=== PATIENT | female | born 1975 | race American Indian/Alaskan Native ===

== ENCOUNTER 2016-08-05 17:55 | Emergency (ER) | payer MEDICARE ==
[2016-08-05 17:55] VITALS: BMI 25.5
[2016-08-05 18:30] VITALS: RESP 18; TEMP 98.7
[2016-08-05 20:32] LABS: RBC URINE 3 /hpf (0-3); URINE BACTERIA RARE (<OCC); URINE BILIRUBIN NEGATIVE (NEGATIVE); URINE BLOOD NEGATIVE (NEGATIVE); URINE COLOR Straw (YELLOW); URINE GLUCOSE (UA) 3+ mg/dL (Normal); URINE KETONE NEGATIVE (NEGATIVE); URINE LEUKOCYTE ESTERASE NEG Leu/uL (Negative); URINE PROTEIN 2+ mg/dL (NEGATIVE); URINE UROBILINOGEN NORMAL mg/dL (0.2-1.0); WBC URINE 3 /hpf (0-5)
[2016-08-05 20:32] LABS: BASO # 0.1 K/uL (0.0-0.2); BASO % 0.5 % (0.0-2.0); EOS # 0.3 K/uL (0.0-0.7); EOS % 1.7 % (0.0-4.0); HEMATOCRIT 33.1 % (34.0-47.0); LYMPH # 4.5 K/uL (1.0-4.3); LYMPH % 28.6 % (20.0-40.0); MEAN CELL VOLUME 92.9 fL (81.0-99.0); MEAN CORPUSCULAR HEMOGLOBIN 31.3 pg (27.0-31.0); MEAN CORPUSCULAR HGB CONC 33.7 g/dL (33.0-37.0); MEAN PLATELET VOLUME 8.2 fL (7.2-11.7); MONO # 1.1 K/uL (0.0-0.8); MONO % 6.9 % (0.0-10.0); RED CELL DISTRIBUTION WIDTH 12.7 % (11.5-14.5); WHITE BLOOD COUNT 15.9 K/uL (4.8-10.8)
[2016-08-05 20:39] LABS: CHLORIDE 95 mmol/L (98-107); SODIUM 132 mmol/L (132-148)
[2016-08-05 20:40] LABS: POTASSIUM 4.1 mmol/L (3.6-5.2)
[2016-08-05 20:42] LABS: ALB/GLOB RATIO 1.1 (1.0-2.1); ALKALINE PHOSPHATASE 92 U/L (38-126); ALT/SGPT 16 U/L (9-52); AST/SGOT 31 U/L (14-36); BILIRUBIN,TOTAL 0.6 mg/dL (0.2-1.3); BLOOD UREA NITROGEN 14 mg/dL (7-17); CARBON DIOXIDE 25 mmol/L (22-30); GFR AFRICAN-AMERICAN > 60; TOTAL PROTEIN 7.6 g/dL (6.3-8.3)
[2016-08-05 20:43] LABS: CALCIUM 8.9 mg/dl (8.6-10.4); GLUCOSE,RANDOM 316 mg/dL (65-105)
[2016-08-05] MEDS ORDERED: Sodium Chloride 0.9% 1,000 ML IV ONE (20:51)
[2016-08-05] MEDS ORDERED: (Novolin R) Insulin Human Regular 100 units/ml vial IV STA (20:52)
--- NOTE | 2016-08-05 20:53 | C.PDOC ---
History Of Present Illness 40 year old patient, with a past medical history of hypertension, arthritis, hypercholesterolemia, hypothyroidism, migraine, diabetes, and gastritis, presents to the ED complaining of lower abdominal bloating and tenderness for the past 2 weeks. Patient denies taking any medications for her symptoms. She is unsure if she is at this time. Patient denies fever, chills, nausea , vomiting, diarrhea, vaginal bleeding, vaginal discharge, urinary symptoms, or back pain. Januvia 100 mg daily Glipizide 10 mg 2-5x/day No metformin No insulin (ran out) doesn't finger stick for lack of lancets, but has FS monitor and FS strips. Lost to f/u with Dr. Garcia for her DM Time Seen by Provider: 08/05/16 20:45 Chief Complaint (Nursing): Abdominal Pain History Per: Patient History/Exam Limitations: no limitations Onset/Duration Of Symptoms: Other (2 weeks) Current Symptoms Are (Timing): Still Present Context: Other Severity: Mild Pain Scale Rating Of: 3 Location Of Pain/Discomfort: Other (lower) Radiation Of Pain To:: None Quality Of Discomfort: "Pain", Other (bloating) Exacerbating Factors: None Alleviating Factors: None Last Bowel Movement: Today Recent travel outside of the [place]: No Abnormal Vaginal Bleeding: No Past Medical History Reviewed: Historical Data, Nursing Documentation, Vital Signs Vital Signs: Last Vital Signs Temp 98.7 F 08/05/16 22:55 Pulse 85 08/05/16 22:55 Resp 18 08/05/16 22:55 BP 146/93 H 08/05/16 22:55 Pulse Ox 98 08/05/16 22:55 - Medical History PMH: Arthritis, Depression, Diabetes, Gastritis, HTN, Hypercholesterolemia, Hypothyroidism, Migraine - [facility] Procedures EXCISION OF R FOOT SUBCU/FASCIA, OPEN APPROACH (11/01/15) INSERTION OF INFUSION DEV INTO SUP VENA CAVA, PERC APPROACH (11/01/15) RESECTION OF RIGHT TOE PHALANX, OPEN APPROACH (11/01/15) Family History: States: Unknown Family Hx - Social History Hx Tobacco Use: Yes Hx Alcohol Use: No Hx Substance Use: No - Immunization History Hx Tetanus Toxoid Vaccination: No Hx Influenza Vaccination: No Hx Pneumococcal Vaccination: No Review Of Systems Except As Marked, All Systems Reviewed And Found Negative. Constitutional: Negative for: Fever, Chills Gastrointestinal: Positive for: Abdominal Pain. Negative for: Nausea, Vomiting , Diarrhea Genitourinary: Negative for: Dysuria, Frequency, Incontinence, Hematuria, Vaginal Discharge, Vaginal Bleeding Musculoskeletal: Negative for: Back Pain Physical Exam - Physical Exam Appears: Non-toxic, No Acute Distress Skin: Warm, Dry Head: Atraumatic, Normacephalic Eye(s): bilateral: PERRL, EOMI Neck: Normal ROM, Supple Chest: Symmetrical Cardiovascular: Rhythm Regular Respiratory: Normal Breath Sounds, No Rales, No Rhonchi, No Wheezing Gastrointestinal/Abdominal: Soft, Tenderness (vaguely to the lower abdomen), No Guarding, No Rebound, Other (obese) Back: Normal Inspection, No CVA Tenderness Extremity: Normal ROM Neurological/Psych: Oriented x3, Normal Speech, Normal Cognition Gait: Steady ED Course And Treatment - Laboratory Results Result Diagrams: 08/05/16 20:40 08/05/16 20:24 Lab Interpretation: Abnormal (++ glu, UA neg.) Urine POC: Negative O2 Sat by Pulse Oximetry: 99 (RA) Pulse Ox Interpretation: Normal Progress Note: Plan: Abdomen/Pelvis CT, EKG, Labs, Novolin, IV fluids, Toradol Reevaluation Time: 22:51 Reassessment Condition: Improved Medical Decision Making Medical Decision Making: constipation, small ovarian cysts, uncontrolled DM Disposition Doctor Will See Patient In The: Office Counseled Patient/Family Regarding: Studies Performed, Diagnosis - Disposition Referrals: Joe Jovel [Staff Provider] - Disposition: HOME/ ROUTINE Disposition Time: 22:52 Condition: GOOD Additional Instructions: constipation: Take a laxative now (mag citrate) and re-eval after treatment Ovarian cysts: Follow-up in outpatient [facility] for ultrasound exam as needed Diabetes: Continue your meds and diabetic diet Instructions: Ovarian Cyst (ED), Constipation (ED), Diabetes Mellitus Type 2 in Adults (ED) - Clinical Impression Clinical Impression: Abdominal pain - Scribe Statement The provider has reviewed the documentation as recorded by the Scribe Kristi Patel Provider Attestation: All medical record entries made by the Scribe were at my direction and personally dictated by me. I have reviewed the chart and agree that the record accurately reflects my personal performance of the history, physical exam, medical decision making, and the department course for this patient. I have also personally directed, reviewed, and agree with the discharge instructions and disposition.
[2016-08-05] MEDS ORDERED: (Novolin R) Insulin Human Regular 100 units/ml vial ONE (21:03)
[2016-08-05] MEDS ORDERED: Sodium Chloride 0.9% 1,000 ML ONE (21:03)
[2016-08-05] MEDS ORDERED: Iohexol 350mg/ml 100 ML ONE (21:42)
[2016-08-05 22:56] VITALS: BP 146/93; PULSE 85
[2016-08-05 23:08] VITALS: O2SAT 99
--- NOTE | 2016-08-06 10:09 | CT ---
PROCEDURE: CT Abdomen and Pelvis without intravenous contrast HISTORY: Lower abdominal pain. Evaluate for diverticulitis. COMPARISON: None. TECHNIQUE: Axial computed tomographic images were performed through the abdomen and pelvis with intravenous contrast. Subsequently, sagittal and coronal reformatted images. Contrast Dose: 100 cc of Omnipaque 350 intravenous contrast was administered. Radiation dose: Total exam DLP = 453 mGy-cm. This CT exam was performed using one or more of the following dose reduction techniques: Automated exposure control, adjustment of the mA and/or kV according to patient size, and/or use of iterative reconstruction technique. FINDINGS: LOWER THORAX: Unremarkable. LIVER: Unremarkable. No gross lesion or ductal dilatation. GALLBLADDER AND BILE DUCTS: Decompressed gallbladder. PANCREAS: Unremarkable. No gross lesion or ductal dilatation. SPLEEN: Unremarkable. ADRENALS: Unremarkable. No mass. KIDNEYS AND URETERS: 8 millimeter low-attenuation lesion in the midpole of the left kidney best seen on series 601, image 79 demonstrating a Hounsfield unit attenuation of 66, indeterminate. This is too small to adequately characterize on CT. Correlation with ultrasound may be helpful if clinically indicated. VASCULATURE: Unremarkable. No aortic aneurysm. BOWEL: Unremarkable. No obstruction. No gross mural thickening. Mild thickening versus underdistention of the sigmoid colon. APPENDIX: Unremarkable. Normal appendix. PERITONEUM: Unremarkable. No free fluid. No free air. LYMPH NODES: Unremarkable. No enlarged lymph nodes. BLADDER: Unremarkable. REPRODUCTIVE: Small involuting cyst identified within the left ovary which is asymmetrically enlarged in comparison to right. Further evaluation with pelvic ultrasound may be helpful if clinically indicated. BONES: No acute fracture. OTHER FINDINGS: None. IMPRESSION: Small involuting cyst identified within the left ovary which is asymmetrically enlarged in comparison to right. Further evaluation with pelvic ultrasound may be helpful if clinically indicated. 8 millimeter low-attenuation lesion in the midpole of the left kidney best seen on series 601, image 79 demonstrating a Hounsfield unit attenuation of 66, indeterminate. This is too small to adequately characterize on CT. Correlation with ultrasound may be helpful if clinically indicated. Mild thickening versus underdistention of the sigmoid colon. Clinical correlation. These findings were preliminarily reported at 10:42 p.m. on 08/05/[address] Elva Nickerson from [facility].
--- NOTE | 2016-08-06 18:55 | CARD ---
APPROVED REPORT EKG Measurement Heart [id number] AR 162P11 [id number] <Conclusion> Normal sinus rhythm Normal ECG
== END 2016-08-05 23:37 | disposition home or self-care (01) ==
LOC: C.ER 17:55
DX: K59.00 Constipation, unspecified (principal); E11.65 Type 2 diabetes mellitus with hyperglycemia
CPT/HCPCS: 74177; 80053; 81001; 82948; 84703; 85025; 93005; 96374; 99285; J1885; J7040; Q9967

== ENCOUNTER 2016-12-29 14:26 | Emergency (ER) | payer MEDICARE ==
[2016-12-29 14:26] VITALS: BMI 25.5
[2016-12-29 14:43] VITALS: RESP 18
--- NOTE | 2016-12-29 16:00 | C.PDOC ---
History Of Present Illness 41-year-old female, presents to the emergency department with complaints of cough for the past three days. Patient notes associated subjective chills. Denies sore throat, fever or any other complaints at this time. Time Seen by Provider: 12/29/16 14:55 Chief Complaint (Nursing): Cough, Cold, Congestion History Per: Patient History/Exam Limitations: no limitations Past Medical History Reviewed: Historical Data, Nursing Documentation, Vital Signs Vital Signs: Last Vital Signs Temp 97.8 F 12/29/16 16:43 Pulse 88 12/29/16 16:43 Resp 18 12/29/16 16:43 BP 143/86 12/29/16 16:43 Pulse Ox 99 12/29/16 16:43 - Medical History PMH: Arthritis, Depression, Diabetes, Gastritis, HTN, Hypercholesterolemia, Hypothyroidism, Migraine Denies: Chronic Kidney Disease - [facility] Procedures EXCISION OF R FOOT SUBCU/FASCIA, OPEN APPROACH (11/01/15) INSERTION OF INFUSION DEV INTO SUP VENA CAVA, PERC APPROACH (11/01/15) RESECTION OF RIGHT TOE PHALANX, OPEN APPROACH (11/01/15) Family History: States: No Known Family Hx - Social History Hx Tobacco Use: Yes Hx Alcohol Use: No Hx Substance Use: No - Immunization History Hx Tetanus Toxoid Vaccination: No Hx Influenza Vaccination: No Hx Pneumococcal Vaccination: No Review Of Systems Except As Marked, All Systems Reviewed And Found Negative. Constitutional: Positive for: Chills. Negative for: Fever Respiratory: Positive for: Cough. Negative for: Shortness of Breath, Sputum Gastrointestinal: Negative for: Vomiting Musculoskeletal: Negative for: Back Pain Neurological: Negative for: Weakness, Numbness, Headache, Dizziness Physical Exam - Physical Exam Appears: Non-toxic, No Acute Distress Skin: Normal Color, Warm, Dry, No Rash Head: Atraumatic, Normacephalic Eye(s): bilateral: Normal Inspection, PERRL, EOMI Nose: Normal Oral Mucosa: Moist Lips: Normal Appearing Throat: Erythema (mild, pharyngeal.) Neck: Normal ROM Cardiovascular: Rhythm Regular, No Murmur Respiratory: Normal Breath Sounds, No Accessory Muscle Use, No Rales, No Rhonchi , No Wheezing Extremity: Normal ROM ED Course And Treatment O2 Sat by Pulse Oximetry: 100 Medical Decision Making Medical Decision Making: cxr neg strep neg. antibitoics given. advise outpt f/u and return precautions Disposition - Disposition Referrals: [facility] [Outside] [facility] [Outside] [facility] [Outside] Disposition: HOME/ ROUTINE Disposition Time: 04:00 Condition: STABLE Additional Instructions: please folow up with your doctor. return to er with worsening symptoms or concerns. Prescriptions: levoFLOXacin [Levaquin] 750 mg PO DAILY #7 tab Instructions: Acute Bronchitis (ED) Forms: [facility] ([place]uan), Work Excuse - Clinical Impression Clinical Impression: Bronchitis - Scribe Statement The provider has reviewed the documentation as recorded by the Scribe (Agus Quinonez) All medical record entries made by the Scribe were at my direction and personally dictated by me. I have reviewed the chart and agree that the record accurately reflects my personal performance of the history, physical exam, medical decision making, and the department course for this patient. I have also personally directed, reviewed, and agree with the discharge instructions and disposition.
[2016-12-29 16:43] VITALS: BP 143/86; PULSE 88; TEMP 97.8
--- NOTE | 2016-12-29 17:11 | RAD ---
HISTORY: Cough. COMPARISON: 11/06/2015. TECHNIQUE: Chest PA and lateral FINDINGS: LUNGS: Linear atelectasis, scarring left upper lobe PLEURA: . CARDIOVASCULAR: Normal. OSSEOUS STRUCTURES: Row below row scoliosis incompletely visualized. Stable finding VISUALIZED UPPER ABDOMEN: Normal. OTHER FINDINGS: None. IMPRESSION: No active disease. No significant interval change compared to the prior examination(s).
[2016-12-29 20:04] VITALS: O2SAT 100
== END 2016-12-29 17:13 | disposition home or self-care (01) ==
LOC: C.ER 14:26
DX: J40 Bronchitis, not specified as acute or chronic (principal)

== ENCOUNTER 2017-01-10 18:06 | Emergency (ER) | payer MEDICARE ==
[2017-01-10 18:07] VITALS: BMI 25.5
--- NOTE | 2017-01-10 19:42 | C.PDOC ---
History Of Present Illness 41 y/o female presents to the ED for evaluation of a cough that is prouductive of yellow phlegm which began around 2.5 weeks ago. Patient was evaluated in [facility] on 12/29 and followed up with her PMD on 12/30 as advised. Patient states she was prescribed antibiotics and cough syrup (names unknown). Patient also reports fever, chills, generalized body aches, headache. She denies chest pain, nausea, vomiting. Time Seen by Provider: 01/10/17 18:56 Chief Complaint (Nursing): Flu-like Symptoms History Per: Patient History/Exam Limitations: no limitations Onset/Duration Of Symptoms: Other (2.5 weeks ) Current Symptoms Are (Timing): Still Present Associated Symptoms: Cough, Sputum Ear Symptoms: Bilateral: None Additional History Per: Patient Past Medical History Reviewed: Historical Data, Nursing Documentation, Vital Signs Vital Signs: Last Vital Signs Temp 98.9 F 01/10/17 19:52 Pulse 82 01/10/17 19:52 Resp 16 01/10/17 19:52 BP 126/84 01/10/17 19:52 Pulse Ox 98 01/10/17 23:15 - Medical History PMH: Arthritis, Depression, Diabetes, Gastritis, HTN, Hypercholesterolemia, Hypothyroidism, Migraine Surgical History: No Surg Hx - [facility] Procedures EXCISION OF R FOOT SUBCU/FASCIA, OPEN APPROACH (11/01/15) INSERTION OF INFUSION DEV INTO SUP VENA CAVA, PERC APPROACH (11/01/15) RESECTION OF RIGHT TOE PHALANX, OPEN APPROACH (11/01/15) Family History: States: Unknown Family Hx - Social History Hx Tobacco Use: Yes Hx Alcohol Use: No Hx Substance Use: No - Immunization History Hx Tetanus Toxoid Vaccination: No Hx Influenza Vaccination: No Hx Pneumococcal Vaccination: No Review Of Systems Constitutional: Positive for: Fever, Chills Cardiovascular: Negative for: Chest Pain Respiratory: Positive for: Cough, Sputum Gastrointestinal: Negative for: Nausea, Vomiting Musculoskeletal: Positive for: Other (generalized body aches ) Neurological: Positive for: Headache Physical Exam - Physical Exam Appears: Non-toxic, No Acute Distress Skin: Normal Color, Warm, Dry Head: Atraumatic, Normacephalic Eye(s): bilateral: Normal Inspection Oral Mucosa: Moist Neck: Supple Chest: Symmetrical, No Deformity, No Tenderness Cardiovascular: Rhythm Regular, No Murmur Respiratory: Normal Breath Sounds, No Rales, No Rhonchi, No Wheezing Gastrointestinal/Abdominal: Tenderness (left lower quadrant ), No Guarding, No Rebound Back: Normal Inspection Extremity: Normal ROM, Capillary Refill (less than 2 seconds ) Gait: Steady ED Course And Treatment ECG: Interpreted By Me, Viewed By Me ECG Rhythm: Sinus Rhythm Rate From EC O2 Sat by Pulse Oximetry: 98 (on RA) Pulse Ox Interpretation: Normal Medical Decision Making Medical Decision Making: resolving bronchitis, clear lungs, normal VS, TWO rounds of abx, ? underlying Psych issues ok to f/u w PMD Disposition Doctor Will See Patient In The: Office Counseled Patient/Family Regarding: Studies Performed, Diagnosis - Disposition Referrals: Ralf Garcia MD [Staff Provider] - Disposition: HOME/ ROUTINE Disposition Time: 19:42 Condition: GOOD Additional Instructions: continue your regular cough medicines No more antibiotics Follow-up with Dr. Garcia as needed. Instructions: Guaifenesin (By mouth), Chronic Bronchitis (ED) Forms: [facility] ([place]an) - Clinical Impression Clinical Impression: Cough - Scribe Statement The provider has reviewed the documentation as recorded by the Scribe (Windy Patel) Provider Attestation: All medical record entries made by the Scribe were at my direction and personally dictated by me. I have reviewed the chart and agree that the record accurately reflects my personal performance of the history, physical exam, medical decision making, and the department course for this patient. I have also personally directed, reviewed, and agree with the discharge instructions and disposition.
[2017-01-10 19:52] VITALS: BP 126/84; PULSE 82; RESP 16; TEMP 98.9
[2017-01-10 20:59] VITALS: O2SAT 98
--- NOTE | 2017-01-13 16:08 | CARD ---
APPROVED REPORT EKG Measurement Heart [id number] WI 142P29 [id number] <Conclusion> Normal sinus rhythm Normal ECG
== END 2017-01-10 19:53 | disposition home or self-care (01) ==
LOC: C.ER 18:06
DX: R05 Cough (principal)

== ENCOUNTER 2017-08-14 18:53 | Inpatient (IN) | payer MEDICARE ==
[2017-08-14 18:54] VITALS: BMI 25.5
[2017-08-14] MEDS ORDERED: Sodium Chloride 0.9% 1,000 ML IV ONE ×3 (19:18→23:25)
--- NOTE | 2017-08-14 19:18 | C.PDOC ---
History Of Present Illness The patient presents to the ED for evaluation of generalized weakness and tiredness which has been ongoing for around 1 month but worsened over the past 3 days. Patient also reports bilateral flank pain, increased urinary frequency, and intermittent fever and chills. Patient was found to have an elevated white blood cell count at her PMD's office and was sent to the ED for further evaluation. Patient denies nausea, vomiting, dysuria. Time Seen by Provider: 08/14/17 19:18 Chief Complaint (Nursing): Medical Clearance History Per: Patient History/Exam Limitations: no limitations Onset/Duration Of Symptoms: Days (3), Intermittent Episodes (1 month ) Current Symptoms Are (Timing): Worse Severity: Moderate Pain Scale Rating Of: 3 Reports Recently: Treated By A Physician Recent travel outside of the [place]: No Additional History Per: Patient Past Medical History Reviewed: Historical Data, Nursing Documentation, Vital Signs Vital Signs: Last Vital Signs Temp 99.3 F 08/14/17 19:13 Pulse 104 H 08/14/17 20:21 Resp 21 08/14/17 20:21 BP 138/91 H 08/14/17 20:21 Pulse Ox 99 08/14/17 20:55 - Medical History PMH: Arthritis, Depression, Diabetes, Gastritis, HTN, Hypercholesterolemia ( DENIES 08/14/17), Hypothyroidism (DENIES 08/14/17), Migraine Denies: Chronic Kidney Disease Surgical History: No Surg Hx - [facility] Procedures EXCISION OF R FOOT SUBCU/FASCIA, OPEN APPROACH (11/01/15) INSERTION OF INFUSION DEV INTO SUP VENA CAVA, PERC APPROACH (11/01/15) RESECTION OF RIGHT TOE PHALANX, OPEN APPROACH (11/01/15) Family History: States: Unknown Family Hx - Social History Hx Tobacco Use: Yes Hx Alcohol Use: No Hx Substance Use: No - Immunization History Hx Tetanus Toxoid Vaccination: No Hx Influenza Vaccination: No Hx Pneumococcal Vaccination: No Review Of Systems Constitutional: Positive for: Fever, Chills, Weakness Cardiovascular: Negative for: Chest Pain, Palpitations Respiratory: Negative for: Cough, Shortness of Breath Gastrointestinal: Negative for: Nausea, Vomiting Genitourinary: Positive for: Frequency. Negative for: Dysuria, Hematuria, Vaginal Discharge, Vaginal Bleeding Musculoskeletal: Positive for: Other (bilateral flank pain ) Skin: Negative for: Rash, Lesions, Jaundice, Bruising Neurological: Negative for: Weakness, Numbness Psych: Negative for: Anxiety Physical Exam - Physical Exam Appears: Non-toxic, No Acute Distress Skin: Warm, Dry Head: Normacephalic Eye(s): bilateral: Normal Inspection Oral Mucosa: Moist Throat: No Erythema, No Exudate Neck: Supple Chest: Symmetrical, No Deformity, No Tenderness Cardiovascular: Rhythm Regular, No Murmur Respiratory: No Rales, No Rhonchi, No Wheezing Gastrointestinal/Abdominal: Bowel Sounds (present ), Soft, No Tenderness, Distention, No Guarding, No Rebound Back: Normal Inspection, Other (bilateral flank tenderness, left>right ) Extremity: Normal ROM, Capillary Refill (less than 2 seconds ) Extremity: Bilateral: Atraumatic Pulses: Left Dorsalis Pedis: Normal, Right Dorsalis Pedis: Normal Neurological/Psych: Oriented x3 Gait: Steady ED Course And Treatment - Laboratory Results Result Diagrams: 08/14/17 19:50 08/14/17 19:50 ECG: Interpreted By Me, Viewed By Me ECG Rhythm: Sinus Rhythm (98), Nonspecific Changes O2 Sat by Pulse Oximetry: 99 (on RA) Pulse Ox Interpretation: Normal Progress Note: Bloodwork, urinalysis, and CXR ordered. IV Fluids administered. Disposition Discussed With DrMahsa: Ralf Garcia Comment: accepted the pt on his service and took over the care at 10:26PM Doctor Will See Patient In The: Hospital Counseled Patient/Family Regarding: Studies Performed, Diagnosis - Disposition Disposition: HOSPITALIZED Disposition Time: 19:18 Condition: FAIR Forms: [facility] (Citizen Of [place]) - POA Present On Arrival: Poor Glycemic Control - Clinical Impression Clinical Impression: Malaise and fatigue, Leukocytosis, Abdominal pain, Constipation - Scribe Statement The provider has reviewed the documentation as recorded by the Scribe (Windy Patel) Provider Attestation: All medical record entries made by the Scribe were at my direction and personally dictated by me. I have reviewed the chart and agree that the record accurately reflects my personal performance of the history, physical exam, medical decision making, and the department course for this patient. I have also personally directed, reviewed, and agree with the discharge instructions and disposition. Decision To Admit - Pt Status Changed To: Hospital Disposition Of: Inpatient - Admit Certification Admit to Inpatient:: After my assessment, the patient will require hospitalization for at least two midnights. This is because of the severity of symptoms shown, intensity of services needed, and/or the medical risk in this patient being treated as an outpatient. - InPatient: Physician Admission Certification: I certify that this patient requires 2 or more midnights of care for the following reason:: After my assessment, the patient will require hospitalization for at least two midnights. This is because of the severity of symptoms shown, intensity of services needed, and/or the medical risk in this patient being treated as an outpatient. - . Bed Request Type: Regular Admitting Physician: Ralf Garcia Patient Diagnosis: Malaise and fatigue, Leukocytosis, Abdominal pain, Constipation
[2017-08-14 19:55] LABS: BASO # 0.2 K/uL (0.0-0.2); BASO % 0.9 % (0.0-2.0); EOS # 0.3 K/uL (0.0-0.7); EOS % 1.8 % (0.0-4.0); HEMOGLOBIN 10.9 g/dL (11.0-16.0); LYMPH # 4.3 K/uL (1.0-4.3); LYMPH % 23.9 % (20.0-40.0); MEAN CELL VOLUME 93.8 fL (81.0-99.0); MEAN CORPUSCULAR HEMOGLOBIN 32.1 pg (27.0-31.0); MEAN CORPUSCULAR HGB CONC 34.2 g/dL (33.0-37.0); MEAN PLATELET VOLUME 7.6 fL (7.2-11.7); MONO # 1.4 K/uL (0.0-0.8); MONO % 8.1 % (0.0-10.0); NEUT # 11.7 K/uL (1.8-7.0); NEUT % 65.3 % (50.0-75.0); NRBC % 0.1 % (0.0-2.0); RBC 3.41 Mil/uL (3.80-5.20); RED CELL DISTRIBUTION WIDTH 12.5 % (11.5-14.5); WHITE BLOOD COUNT 17.9 K/uL (4.8-10.8)
[2017-08-14 20:00] LABS: HCG,QUALITATIVE URINE NEGATIVE (NEGATIVE); SQUAMOUS EPITHIAL 5 /hpf (0-5); URINE BILIRUBIN NEGATIVE (NEGATIVE); URINE BLOOD NEGATIVE (NEGATIVE); URINE CLARITY Hazy (Clear); URINE COLOR Amber (YELLOW); URINE GLUCOSE (UA) 1+ mg/dL (Normal); URINE LEUKOCYTE ESTERASE NEG Leu/uL (Negative); URINE PROTEIN 3+ mg/dL (NEGATIVE)
[2017-08-14 20:05] LABS: INR 0.9; PROTHROMBIN TIME 10.3 SECONDS (9.7-12.2)
[2017-08-14 20:07] LABS: ALB/GLOB RATIO 0.9 (1.0-2.1); ALBUMIN 3.5 g/dL (3.5-5.0); ALT/SGPT 14 U/L (9-52); AST/SGOT 20 U/L (14-36); BLOOD UREA NITROGEN 16 mg/dL (7-17); CALCIUM 8.9 mg/dl (8.6-10.4); GFR AFRICAN-AMERICAN > 60; GFR NON-AFRICAN AMERICAN > 60; LIPASE 91 U/L (23-300)
[2017-08-14 20:07] LABS: VENOUS BLOOD GAS BASE EXCESS 1.3 mmol/L (0.0-2.0); VENOUS BLOOD GAS PCO2 47 mmHg (40-60); VENOUS BLOOD GAS PO2 33 mm/Hg (30-55); VENOUS BLOOD PH 7.37 (7.32-7.43)
[2017-08-14] MEDS ORDERED: Piperacillin/Tazobact 3.375 gm 100 ML IVPB STA (20:16)
[2017-08-14] MEDS ORDERED: Piperacillin/Tazobact 3.375 gm 100 ML IVPB ONE (20:27)
--- NOTE | 2017-08-14 21:55 | CT ---
EXAM: CT Abdomen and Pelvis Without Intravenous Contrast EXAM DATE/TIME: Exam ordered 08/14/2017 8:12 PM CLINICAL HISTORY: 41 years old, female; Pain; Abdominal pain; Flank; Other: Bilat; Additional info: B/l flank pain, leukocytosis TECHNIQUE: Axial computed tomography images of the abdomen and pelvis without intravenous contrast. All CT scans at this facility use one or more dose reduction techniques, viz.: automated exposure control; ma/kV adjustment per patient size (including targeted exams where dose is matched to indication; i.e. head); or iterative reconstruction technique. Coronal and sagittal reformatted images were created and reviewed. COMPARISON: CT - ABD PELVIS PO CONTRAST ONLY 2017-04-23 11:43 FINDINGS: Lung bases: Unremarkable. No mass. No consolidation. Mediastinum: There is a small hiatal hernia. ABDOMEN: Liver: Unremarkable. Gallbladder and bile ducts: Unremarkable. No calcified stones. No ductal dilation. Pancreas: Unremarkable. No ductal dilation. Spleen: Unremarkable. No splenomegaly. Adrenals: Unremarkable. No mass. Kidneys and ureters: Unremarkable. No obstructing stones. No hydronephrosis. Stomach and bowel: Moderate to large amount of stool is seen in the colon. No mucosal thickening. PELVIS: Appendix: No findings to suggest acute appendicitis. Bladder: Unremarkable. No stones. Reproductive: Unremarkable as visualized. ABDOMEN and PELVIS: Intraperitoneal space: Unremarkable. No free air. No significant fluid collection. Bones/joints: No acute fracture. No dislocation. Soft tissues: Unremarkable. Vasculature: Unremarkable. No abdominal aortic aneurysm. Lymph nodes: Unremarkable. No enlarged lymph nodes. IMPRESSION: 1. No acute findings.
[2017-08-14 23:24] LABS: VENOUS BLOOD GAS BASE EXCESS -4.4 mmol/L (0.0-2.0); VENOUS BLOOD GAS PCO2 28 mmHg (40-60); VENOUS BLOOD GAS PO2 41 mm/Hg (30-55); VENOUS BLOOD PH 7.43 (7.32-7.43)
[2017-08-14 23:53] LABS: VENOUS BLOOD GAS BASE EXCESS -2.9 mmol/L (0.0-2.0); VENOUS BLOOD GAS PCO2 41 mmHg (40-60); VENOUS BLOOD GAS PO2 31 mm/Hg (30-55); VENOUS BLOOD PH 7.35 (7.32-7.43)
[2017-08-15] MEDS: Piperacillin/Tazobact 3.375 GM in Sodium Chloride 100 ML IVPB SCH ×4 (00:41→22:25)
[2017-08-15] MEDS: Vancomycin 1 gm/NS 200 ml 1 GM/200 ML BAG IVPB SCH ×2 (00:48→23:36)
[2017-08-15] MEDS: (Novolin R) Insulin Human Regular 100 units/ml vial SC SCH ×4 (00:57→17:17)
[2017-08-15] MEDS: (Lantus) Insulin Glargine, Recombinant SC SCH (00:59)
[2017-08-15 01:13] VITALS: RESP 20
--- NOTE | 2017-08-15 06:45 | RAD ---
Chest x-ray single frontal view History: Shortness of breath. Comparison: None available. Findings: No focal infiltrate or effusion. Heart size within normal limits. Degenerative changes in the spine with paravertebral osteophytes. Bony bridging and or distortion of several mid left lateral ribs. This appears stable since the prior study. Heart size within normal limits. Impression: No focal infiltrate or effusion. Bony bridging and or distortion of several mid left lateral ribs. This appears stable since the prior study.
[2017-08-15 06:47] LABS: BASO # 0.1 K/uL (0.0-0.2); BASO % 0.5 % (0.0-2.0); EOS # 0.2 K/uL (0.0-0.7); LYMPH # 3.5 K/uL (1.0-4.3); LYMPH % 28.6 % (20.0-40.0); MEAN CELL VOLUME 93.8 fL (81.0-99.0); MEAN CORPUSCULAR HEMOGLOBIN 32.6 pg (27.0-31.0); MEAN CORPUSCULAR HGB CONC 34.8 g/dL (33.0-37.0); MONO # 0.8 K/uL (0.0-0.8); MONO % 6.6 % (0.0-10.0); NEUT # 7.8 K/uL (1.8-7.0); NEUT % 62.3 % (50.0-75.0); RBC 2.67 Mil/uL (3.80-5.20); RED CELL DISTRIBUTION WIDTH 12.6 % (11.5-14.5); WHITE BLOOD COUNT 12.4 K/uL (4.8-10.8)
[2017-08-15 06:50] LABS: HEMOGLOBIN 8.7 g/dL (11.0-16.0)
[2017-08-15 07:47] LABS: ALB/GLOB RATIO 0.9 (1.0-2.1); ALBUMIN 2.6 g/dL (3.5-5.0); ALT/SGPT 9 U/L (9-52); AST/SGOT 19 U/L (14-36); BLOOD UREA NITROGEN 15 mg/dL (7-17); CALCIUM 7.6 mg/dl (8.6-10.4); GFR AFRICAN-AMERICAN > 60; GFR NON-AFRICAN AMERICAN > 60
[2017-08-15] MEDS ORDERED: OMEPRAZOLE 40 MG PO SCH (10:00)
[2017-08-15] MEDS: Albuterol-Ipratrop 3 mg / 0.5 (3 ml) UD INH PRN ×2 (13:47→22:49)
--- NOTE | 2017-08-15 14:02 | CP.PCM.CON ---
History of Present Illness - History of Present Illness History of Present Illness: INFECTIOUS DISEASE CONSULT; DICTATED#[id number]. see reports. Past Patient History - Infectious Disease Hx of Infectious Diseases: None - Past Medical History & Family History Past Medical History?: Yes - Past Social History Smoking Status: Former Smoker - CARDIAC Hx Hypercholesterolemia: Yes (DENIES 08/14/17) Hx Hypertension: Yes - PULMONARY Hx Respiratory Disorders: Yes Hx Asthma: Yes - NEUROLOGICAL Hx Migraine: Yes - HEENT Hx HEENT Problems: Yes Hx Glaucoma: Yes - RENAL Hx Chronic Kidney Disease: No - ENDOCRINE/METABOLIC Hx Hypothyroidism: Yes (DENIES 08/14/17) - HEMATOLOGICAL/ONCOLOGICAL Hx Blood Disorders: No - INTEGUMENTARY Hx Dermatological Problems: Yes Hx Eczema: Yes (MOSTLY ON ARMS) Other/Comment: LEFT BREAST MASS - MUSCULOSKELETAL/RHEUMATOLOGICAL Hx Arthritis: Yes Hx Falls: No - GASTROINTESTINAL Hx Gastritis: Yes - GENITOURINARY/GYNECOLOGICAL Hx Genitourinary Disorders: No - PSYCHIATRIC Hx Depression: Yes Hx Substance Use: No - SURGICAL HISTORY Hx Surgeries: Yes Other/Comment: LEFT BREAST BX.-LOCAL ONLY - ANESTHESIA Hx Anesthesia: Yes (LOCAL ONLY -BREAST BX.-LEFT) Hx Anesthesia Reactions: No Hx Malignant Hyperthermia: No Meds Allergies/Adverse Reactions: Allergies Allergy/AdvReac Type Severity Reaction Status Date / Time tomato Allergy Verified 08/14/17 19:19 chocolate Allergy Uncoded 08/14/17 19:19 KETCHUP Allergy Uncoded 08/14/17 19:19 shelfish Allergy Uncoded 08/14/17 19:19 strawbery Allergy Uncoded 08/14/17 19:19 - Medications Medications: Current Medications Albuterol/Ipratropium (Duoneb 3 Mg/0.5 Mg (3 Ml) Ud) 3 ml INH RQ4 PRN PRN Reason: Wheezing Last Admin: 08/15/17 13:47 Dose: 3 ml Aspirin (Ecotrin) 81 mg PO DAILY [facility] Last Admin: 08/15/17 09:24 Dose: 81 mg Heparin Sodium (Porcine) (Heparin) 5,000 units SC Q12 MARILYN Last Admin: 08/15/17 09:24 Dose: 5,000 units Piperacillin Sod/Tazobactam (Sod 3.375 gm/ Sodium Chloride) 100 mls @ 100 mls/ hr IVPB Q8H MARILYN PRN Reason: Protocol Last Admin: 08/15/17 06:22 Dose: 100 mls/hr Vancomycin/Sodium Chloride (Vancomycin 1 Gm/Ns 200 Ml) 1 gm in 200 mls @ 133.333 mls/hr IVPB Q24H [facility] PRN Reason: Protocol Stop: 08/19/17 23:31 Last Admin: 08/15/17 00:48 Dose: 133.333 mls/hr Insulin Glargine (Lantus) 30 unit SC HS [facility] Last Admin: 08/15/17 00:59 Dose: 30 units Insulin Human Regular (Novolin R) 0 unit SC ACHS [facility]ILYN PRN Reason: Protocol Last Admin: 08/15/17 12:24 Dose: 8 unit Losartan Potassium (Cozaar) 50 mg PO DAILY [facility] Last Admin: 08/15/17 09:24 Dose: 50 mg Magnesium Hydroxide (Milk Of Magnesia) 30 ml PO HS [facility] Last Admin: 08/15/17 01:00 Dose: 30 ml Pantoprazole Sodium (Protonix Ec Tab) 40 mg PO DAILY [facility] Sitagliptin Phosphate (Januvia) 100 mg PO DAILY [facility] Last Admin: 08/15/17 09:24 Dose: 100 mg Results - Vital Signs Recent Vital Signs: Last Vital Signs Temp 98.1 F 08/15/17 08:17 Pulse 102 H 08/15/17 08:17 Resp 20 08/15/17 08:17 BP 134/84 08/15/17 08:17 Pulse Ox 97 08/15/17 08:17 - Labs Result Diagrams: 08/15/17 06:40 08/15/17 06:40 Labs: Laboratory Results - last 24 hr 08/14/17 08/14/17 08/14/17 19:50 19:50 19:50 WBC 17.9 H RBC 3.41 L Hgb 10.9 L Hct 32.0 L MCV 93.8 MCH 32.1 H MCHC 34.2 RDW 12.5 Plt Count 392 MPV 7.6 Neut % (Auto) 65.3 Lymph % (Auto) 23.9 [place] % (Auto) 8.1 Eos % (Auto) 1.8 Baso % (Auto) 0.9 Neut # (Auto) 11.7 H Lymph # (Auto) 4.3 [place] # (Auto) 1.4 H Eos # (Auto) 0.3 Baso # (Auto) 0.2 PT 10.3 INR 0.9 APTT 25 pO2 VBG pH VBG pCO2 VBG HCO3 VBG Total CO2 VBG O2 Sat (Calc) VBG Base Excess VBG Potassium Glucose Lactate Crit Value Called To Crit Value Called By Crit Value Read Back Blood Gas Notified Time Sodium 139 Potassium 4.0 Chloride 102 Carbon Dioxide 24 Anion Gap 17 BUN 16 Creatinine 1.0 Est GFR ( Amer) > 60 Est GFR (Non-Af Amer) > 60 POC Glucose (mg/dL) Random Glucose 149 H Calcium 8.9 Magnesium 1.5 L Total Bilirubin 0.4 AST 20 ALT 14 Alkaline Phosphatase 108 C-Reactive Protein Total Protein 7.4 Albumin 3.5 Globulin 3.9 Albumin/Globulin Ratio 0.9 L Lipase 91 Venous Blood Potassium Urine Color Urine Clarity Urine pH Ur Specific [place] Urine Protein Urine Glucose (UA) Urine Ketones Urine Blood Urine Nitrate Urine Bilirubin Urine Urobilinogen Ur Leukocyte Esterase Urine WBC (Auto) Urine RBC (Auto) Ur Squamous Epith Cells Hyaline Casts Urine HCG, Qual 08/14/17 08/14/17 08/14/17 19:50 19:58 23:18 WBC RBC Hgb Hct MCV MCH MCHC RDW Plt Count MPV Neut % (Auto) Lymph % (Auto) [place] % (Auto) Eos % (Auto) Baso % (Auto) Neut # (Auto) Lymph # (Auto) [place] # (Auto) Eos # (Auto) Baso # (Auto) PT INR APTT pO2 33 41 VBG pH 7.37 7.43 VBG pCO2 47 28 L VBG HCO3 25.0 21.0 VBG Total CO2 28.6 H 19.5 L VBG O2 Sat (Calc) 59.3 83.7 H VBG Base Excess 1.3 -4.4 L VBG Potassium 4.1 Glucose 157 H 255 H Lactate 2.6 H 2.7 H Crit Value Called To Lori ayala rn Crit Value Called By Eder Crit Value Read Back Y Blood Gas Notified Time 2324 Sodium 139.0 198.0 H* Potassium Chloride 104.0 131.0 H Carbon Dioxide Anion Gap BUN Creatinine Est GFR ( Amer) Est GFR (Non-Af Amer) POC Glucose (mg/dL) Random Glucose Calcium Magnesium Total Bilirubin AST ALT Alkaline Phosphatase C-Reactive Protein Total Protein Albumin Globulin Albumin/Globulin Ratio Lipase Venous Blood Potassium 4.1 Urine Color Digna Urine Clarity Hazy Urine pH 6.0 Ur Specific [place] 1.027 Urine Protein 3+ H Urine Glucose (UA) 1+ Urine Ketones Trace Urine Blood Negative Urine Nitrate Negative Urine Bilirubin Negative Urine Urobilinogen 2.0 H Ur Leukocyte Esterase Neg Urine WBC (Auto) 3 Urine RBC (Auto) 4 H Ur Squamous Epith Cells 5 Hyaline Casts 3-5 H Urine HCG, Qual Negative 08/14/17 08/15/17 08/15/17 23:50 00:55 06:40 WBC RBC Hgb Hct MCV MCH MCHC RDW Plt Count MPV Neut % (Auto) Lymph % (Auto) [place] % (Auto) Eos % (Auto) Baso % (Auto) Neut # (Auto) Lymph # (Auto) [place] # (Auto) Eos # (Auto) Baso # (Auto) PT INR APTT pO2 31 VBG pH 7.35 VBG pCO2 41 VBG HCO3 21.5 VBG Total CO2 23.9 VBG O2 Sat (Calc) 64.8 VBG Base Excess -2.9 L VBG Potassium 3.8 Glucose 305 H Lactate 2.5 H Crit Value Called To Crit Value Called By Crit Value Read Back Blood Gas Notified Time Sodium 138.0 Potassium Chloride 108.0 H Carbon Dioxide Anion Gap BUN Creatinine Est GFR ( Amer) Est GFR (Non-Af Amer) POC Glucose (mg/dL) 307 H Random Glucose Calcium Magnesium Total Bilirubin AST ALT Alkaline Phosphatase C-Reactive Protein 19.10 H Total Protein Albumin Globulin Albumin/Globulin Ratio Lipase Venous Blood Potassium 3.8 Urine Color Urine Clarity Urine pH Ur Specific [place] Urine Protein Urine Glucose (UA) Urine Ketones Urine Blood Urine Nitrate Urine Bilirubin Urine Urobilinogen Ur Leukocyte Esterase Urine WBC (Auto) Urine RBC (Auto) Ur Squamous Epith Cells Hyaline Casts Urine HCG, Qual 08/15/17 08/15/17 08/15/17 06:40 06:40 07:37 WBC 12.4 H RBC 2.67 L Hgb 8.7 L D Hct 25.0 L MCV 93.8 MCH 32.6 H MCHC 34.8 RDW 12.6 Plt Count 281 D MPV 8.0 Neut % (Auto) 62.3 Lymph % (Auto) 28.6 [place] % (Auto) 6.6 Eos % (Auto) 2.0 Baso % (Auto) 0.5 Neut # (Auto) 7.8 H Lymph # (Auto) 3.5 [place] # (Auto) 0.8 Eos # (Auto) 0.2 Baso # (Auto) 0.1 PT INR APTT pO2 VBG pH VBG pCO2 VBG HCO3 VBG Total CO2 VBG O2 Sat (Calc) VBG Base Excess VBG Potassium Glucose Lactate Crit Value Called To Crit Value Called By Crit Value Read Back Blood Gas Notified Time Sodium 137 Potassium 4.1 Chloride 107 Carbon Dioxide 23 Anion Gap 11 BUN 15 Creatinine 1.0 Est GFR ( Amer) > 60 Est GFR (Non-Af Amer) > 60 POC Glucose (mg/dL) 229 H Random Glucose 253 H Calcium 7.6 L Magnesium Total Bilirubin 0.3 AST 19 ALT 9 D Alkaline Phosphatase 78 C-Reactive Protein Total Protein 5.4 L Albumin 2.6 L D Globulin 2.9 Albumin/Globulin Ratio 0.9 L Lipase Venous Blood Potassium Urine Color Urine Clarity Urine pH Ur Specific [place] Urine Protein Urine Glucose (UA) Urine Ketones Urine Blood Urine Nitrate Urine Bilirubin Urine Urobilinogen Ur Leukocyte Esterase Urine WBC (Auto) Urine RBC (Auto) Ur Squamous Epith Cells Hyaline Casts Urine HCG, Qual 08/15/17 11:32 WBC RBC Hgb Hct MCV MCH MCHC RDW Plt Count MPV Neut % (Auto) Lymph % (Auto) [place] % (Auto) Eos % (Auto) Baso % (Auto) Neut # (Auto) Lymph # (Auto) [place] # (Auto) Eos # (Auto) Baso # (Auto) PT INR APTT pO2 VBG pH VBG pCO2 VBG HCO3 VBG Total CO2 VBG O2 Sat (Calc) VBG Base Excess VBG Potassium Glucose Lactate Crit Value Called To Crit Value Called By Crit Value Read Back Blood Gas Notified Time Sodium Potassium Chloride Carbon Dioxide Anion Gap BUN Creatinine Est GFR ( Amer) Est GFR (Non-Af Amer) POC Glucose (mg/dL) 398 H Random Glucose Calcium Magnesium Total Bilirubin AST ALT Alkaline Phosphatase C-Reactive Protein Total Protein Albumin Globulin Albumin/Globulin Ratio Lipase Venous Blood Potassium Urine Color Urine Clarity Urine pH Ur Specific [place] Urine Protein Urine Glucose (UA) Urine Ketones Urine Blood Urine Nitrate Urine Bilirubin Urine Urobilinogen Ur Leukocyte Esterase Urine WBC (Auto) Urine RBC (Auto) Ur Squamous Epith Cells Hyaline Casts Urine HCG, Qual
--- NOTE | 2017-08-15 14:49 | CP.PCM.HP ---
History of Present Illness - History of Present Illness History of Present Illness: COMPREHENSIVE HISTORY & PHYSICAL EXAM HPI FOR LAST FEW DAYS PT IS HAVING COUGH, SOB/WHEEZING AND ABD PAIN. PRELIMINARY OUT PT. W/U SHOWED WBC 13.5 . PT HAS RECEIVED PO AB . PT HAS NO MEASURABLE IMPROVEMENT AND WAS REFERRED TO ER . ER SHOWED WBC OF 17.5 AND MILD INCREASE IN LACTATE PAST HIST. T2DM/HTN/DM FOOT INFECTION /COPD PERSONAL HIST: Smoking. Y Alcohol. N Allergy N Travel_- . FAMILY HIST : ROS : Constitutional: POS for weight change, chills, night sweats, fatigue Eyes: Negative for redness, swelling, itching, discharge, vision changes, blurry vision, double vision, glaucoma, cataracts, Ears: Negative for hearing loss, ringing, , tinnitus, vertigo Nose: Negative for rhinorrhea, stuffiness, sniffing, itching, postnasal drip, discoloration, nasal congestion and epistaxis. Throat: Negative for throat clearing, sore throat, hoarseness, difficulty swallowing and difficulty speaking. Respiratory: Negative for , hemoptysis, snoring at night, Cardiovascular: Negative for chest pain, palpitations, orthopnea, PND, Edema of legs, leg cramps, angina, claudication, , irregular heartbeat, Neurology: Negative for irritability, muscle weakness, numbness and tingling, seizures, tremors, migraines, slurred speech, syncope, memory loss, mood changes , recurrent headaches Gastrointestinal: Negative for difficulty swallowing,black stools, rectal bleeding, nausea, flatulence, reflux,e, changes in bowel habits, Genitourinary: Negative for frequent urination, hematuria, discharge, incontinence, urinary retention, frequent UTI, Psychiatric: Negative for depression, anxiety/panic, suicidal tendencies, Musculoskeletal: Negative for swollen joints, back pain, , neck pain, morning stiffness of joints, . Skin: Negative for rash, ulcers, itching, dry skin and pigmented lesions. P/E: Constitutional: Appears stated age and in no apparent distress. Head: Normocephalic. Ears: External ear canals patent without inflammation. Tympanic membranes intact with normal light reflex and landmark. Eyes: Pupils are central, bilaterally equal, symmetrical and reacts to light with normal movements and no icterus or pallor. Nose: External nares are patent. Mucosa is pink Mouth-Throat: Good general appearance and condition. No post-pharyngeal/oropharyngeal erythema and tonsillar hypertrophy. Good dental hygiene. Neck-Lymphatic: Neck is supple with normal ROM, no thyromegaly, lymph nodes or masses. JVD is normal with no carotid bruit. Lungs: Clear to percussion and auscultation with bilateral normal air entry. Cardiovascular: S1 and S2 are normal with no murmurs, gallops and rub. GI Exam: No hepatomegaly. Abdomen is soft and non-tender. No Organomegaly , masses or hernias are evident and bowel sounds are normal and active. Neurology: Higher function and all cranial nerves intact, with no gross motor or sensory deficit. Superficial and deep reflexes are normal with downwards planters. No cerebellar deficit with normal gait. Musculoskeletal: No tender spots with normal curvature of the spine with no swelling or restricted ROM of the small and large joints. Extremities: Homans sign absent. Intact pulses with no pitting edema, calf tenderness or skin color changes. Skin: No rash, eruptions or abnormal skin pigmentation LAB/RADIOLOGY: ASSESMENT : SEPSIS ETIOLOGY UNCLEAR UNCONTROLLED DM COPD PLAN: SEE ORDERS Present on Admission - Present on Admission Any Indicators Present on Admission: No Past Patient History - Infectious Disease Hx of Infectious Diseases: None - Past Medical History & Family History Past Medical History?: Yes - Past Social History Smoking Status: Former Smoker - CARDIAC Hx Hypercholesterolemia: Yes (DENIES 08/14/17) Hx Hypertension: Yes - PULMONARY Hx Respiratory Disorders: Yes Hx Asthma: Yes - NEUROLOGICAL Hx Migraine: Yes - HEENT Hx HEENT Problems: Yes Hx Glaucoma: Yes - RENAL Hx Chronic Kidney Disease: No - ENDOCRINE/METABOLIC Hx Hypothyroidism: Yes (DENIES 08/14/17) - HEMATOLOGICAL/ONCOLOGICAL Hx Blood Disorders: No - INTEGUMENTARY Hx Dermatological Problems: Yes Hx Eczema: Yes (MOSTLY ON ARMS) Other/Comment: LEFT BREAST MASS - MUSCULOSKELETAL/RHEUMATOLOGICAL Hx Arthritis: Yes Hx Falls: No - GASTROINTESTINAL Hx Gastritis: Yes - GENITOURINARY/GYNECOLOGICAL Hx Genitourinary Disorders: No - PSYCHIATRIC Hx Depression: Yes Hx Substance Use: No - SURGICAL HISTORY Hx Surgeries: Yes Other/Comment: LEFT BREAST BX.-LOCAL ONLY - ANESTHESIA Hx Anesthesia: Yes (LOCAL ONLY -BREAST BX.-LEFT) Hx Anesthesia Reactions: No Hx Malignant Hyperthermia: No Meds Allergies/Adverse Reactions: Allergies Allergy/AdvReac Type Severity Reaction Status Date / Time tomato Allergy Verified 08/14/17 19:19 chocolate Allergy Uncoded 08/14/17 19:19 KETCHUP Allergy Uncoded 08/14/17 19:19 shelfish Allergy Uncoded 08/14/17 19:19 strawbery Allergy Uncoded 08/14/17 19:19 Results - Vital Signs Recent Vital Signs: Last Vital Signs Temp 98.1 F 08/15/17 08:17 Pulse 102 H 08/15/17 08:17 Resp 20 08/15/17 08:17 BP 134/84 08/15/17 08:17 Pulse Ox 97 08/15/17 08:17 - Labs Result Diagrams: 08/15/17 06:40 08/15/17 06:40 Labs: Laboratory Results - last 24 hr 08/14/17 08/14/17 08/14/17 19:50 19:50 19:50 WBC 17.9 H RBC 3.41 L Hgb 10.9 L Hct 32.0 L MCV 93.8 MCH 32.1 H MCHC 34.2 RDW 12.5 Plt Count 392 MPV 7.6 Neut % (Auto) 65.3 Lymph % (Auto) 23.9 [place] % (Auto) 8.1 Eos % (Auto) 1.8 Baso % (Auto) 0.9 Neut # (Auto) 11.7 H Lymph # (Auto) 4.3 [place] # (Auto) 1.4 H Eos # (Auto) 0.3 Baso # (Auto) 0.2 PT 10.3 INR 0.9 APTT 25 pO2 VBG pH VBG pCO2 VBG HCO3 VBG Total CO2 VBG O2 Sat (Calc) VBG Base Excess VBG Potassium Glucose Lactate Crit Value Called To Crit Value Called By Crit Value Read Back Blood Gas Notified Time Sodium 139 Potassium 4.0 Chloride 102 Carbon Dioxide 24 Anion Gap 17 BUN 16 Creatinine 1.0 Est GFR ( Amer) > 60 Est GFR (Non-Af Amer) > 60 POC Glucose (mg/dL) Random Glucose 149 H Calcium 8.9 Magnesium 1.5 L Total Bilirubin 0.4 AST 20 ALT 14 Alkaline Phosphatase 108 C-Reactive Protein Total Protein 7.4 Albumin 3.5 Globulin 3.9 Albumin/Globulin Ratio 0.9 L Lipase 91 Venous Blood Potassium Urine Color Urine Clarity Urine pH Ur Specific [place] Urine Protein Urine Glucose (UA) Urine Ketones Urine Blood Urine Nitrate Urine Bilirubin Urine Urobilinogen Ur Leukocyte Esterase Urine WBC (Auto) Urine RBC (Auto) Ur Squamous Epith Cells Hyaline Casts Urine HCG, Qual 08/14/17 08/14/17 08/14/17 19:50 19:58 23:18 WBC RBC Hgb Hct MCV MCH MCHC RDW Plt Count MPV Neut % (Auto) Lymph % (Auto) [place] % (Auto) Eos % (Auto) Baso % (Auto) Neut # (Auto) Lymph # (Auto) [place] # (Auto) Eos # (Auto) Baso # (Auto) PT INR APTT pO2 33 41 VBG pH 7.37 7.43 VBG pCO2 47 28 L VBG HCO3 25.0 21.0 VBG Total CO2 28.6 H 19.5 L VBG O2 Sat (Calc) 59.3 83.7 H VBG Base Excess 1.3 -4.4 L VBG Potassium 4.1 Glucose 157 H 255 H Lactate 2.6 H 2.7 H Crit Value Called To Lori ayala rn Crit Value Called By Eder Crit Value Read Back Y Blood Gas Notified Time 2324 Sodium 139.0 198.0 H* Potassium Chloride 104.0 131.0 H Carbon Dioxide Anion Gap BUN Creatinine Est GFR ( Amer) Est GFR (Non-Af Amer) POC Glucose (mg/dL) Random Glucose Calcium Magnesium Total Bilirubin AST ALT Alkaline Phosphatase C-Reactive Protein Total Protein Albumin Globulin Albumin/Globulin Ratio Lipase Venous Blood Potassium 4.1 Urine Color Digna Urine Clarity Hazy Urine pH 6.0 Ur Specific [place] 1.027 Urine Protein 3+ H Urine Glucose (UA) 1+ Urine Ketones Trace Urine Blood Negative Urine Nitrate Negative Urine Bilirubin Negative Urine Urobilinogen 2.0 H Ur Leukocyte Esterase Neg Urine WBC (Auto) 3 Urine RBC (Auto) 4 H Ur Squamous Epith Cells 5 Hyaline Casts 3-5 H Urine HCG, Qual Negative 08/14/17 08/15/17 08/15/17 23:50 00:55 06:40 WBC RBC Hgb Hct MCV MCH MCHC RDW Plt Count MPV Neut % (Auto) Lymph % (Auto) [place] % (Auto) Eos % (Auto) Baso % (Auto) Neut # (Auto) Lymph # (Auto) [place] # (Auto) Eos # (Auto) Baso # (Auto) PT INR APTT pO2 31 VBG pH 7.35 VBG pCO2 41 VBG HCO3 21.5 VBG Total CO2 23.9 VBG O2 Sat (Calc) 64.8 VBG Base Excess -2.9 L VBG Potassium 3.8 Glucose 305 H Lactate 2.5 H Crit Value Called To Crit Value Called By Crit Value Read Back Blood Gas Notified Time Sodium 138.0 Potassium Chloride 108.0 H Carbon Dioxide Anion Gap BUN Creatinine Est GFR ( Amer) Est GFR (Non-Af Amer) POC Glucose (mg/dL) 307 H Random Glucose Calcium Magnesium Total Bilirubin AST ALT Alkaline Phosphatase C-Reactive Protein 19.10 H Total Protein Albumin Globulin Albumin/Globulin Ratio Lipase Venous Blood Potassium 3.8 Urine Color Urine Clarity Urine pH Ur Specific [place] Urine Protein Urine Glucose (UA) Urine Ketones Urine Blood Urine Nitrate Urine Bilirubin Urine Urobilinogen Ur Leukocyte Esterase Urine WBC (Auto) Urine RBC (Auto) Ur Squamous Epith Cells Hyaline Casts Urine HCG, Qual 08/15/17 08/15/17 08/15/17 06:40 06:40 07:37 WBC 12.4 H RBC 2.67 L Hgb 8.7 L D Hct 25.0 L MCV 93.8 MCH 32.6 H MCHC 34.8 RDW 12.6 Plt Count 281 D MPV 8.0 Neut % (Auto) 62.3 Lymph % (Auto) 28.6 [place] % (Auto) 6.6 Eos % (Auto) 2.0 Baso % (Auto) 0.5 Neut # (Auto) 7.8 H Lymph # (Auto) 3.5 [place] # (Auto) 0.8 Eos # (Auto) 0.2 Baso # (Auto) 0.1 PT INR APTT pO2 VBG pH VBG pCO2 VBG HCO3 VBG Total CO2 VBG O2 Sat (Calc) VBG Base Excess VBG Potassium Glucose Lactate Crit Value Called To Crit Value Called By Crit Value Read Back Blood Gas Notified Time Sodium 137 Potassium 4.1 Chloride 107 Carbon Dioxide 23 Anion Gap 11 BUN 15 Creatinine 1.0 Est GFR ( Amer) > 60 Est GFR (Non-Af Amer) > 60 POC Glucose (mg/dL) 229 H Random Glucose 253 H Calcium 7.6 L Magnesium Total Bilirubin 0.3 AST 19 ALT 9 D Alkaline Phosphatase 78 C-Reactive Protein Total Protein 5.4 L Albumin 2.6 L D Globulin 2.9 Albumin/Globulin Ratio 0.9 L Lipase Venous Blood Potassium Urine Color Urine Clarity Urine pH Ur Specific [place] Urine Protein Urine Glucose (UA) Urine Ketones Urine Blood Urine Nitrate Urine Bilirubin Urine Urobilinogen Ur Leukocyte Esterase Urine WBC (Auto) Urine RBC (Auto) Ur Squamous Epith Cells Hyaline Casts Urine HCG, Qual 08/15/17 11:32 WBC RBC Hgb Hct MCV MCH MCHC RDW Plt Count MPV Neut % (Auto) Lymph % (Auto) [place] % (Auto) Eos % (Auto) Baso % (Auto) Neut # (Auto) Lymph # (Auto) [place] # (Auto) Eos # (Auto) Baso # (Auto) PT INR APTT pO2 VBG pH VBG pCO2 VBG HCO3 VBG Total CO2 VBG O2 Sat (Calc) VBG Base Excess VBG Potassium Glucose Lactate Crit Value Called To Crit Value Called By Crit Value Read Back Blood Gas Notified Time Sodium Potassium Chloride Carbon Dioxide Anion Gap BUN Creatinine Est GFR ( Amer) Est GFR (Non-Af Amer) POC Glucose (mg/dL) 398 H Random Glucose Calcium Magnesium Total Bilirubin AST ALT Alkaline Phosphatase C-Reactive Protein Total Protein Albumin Globulin Albumin/Globulin Ratio Lipase Venous Blood Potassium Urine Color Urine Clarity Urine pH Ur Specific [place] Urine Protein Urine Glucose (UA) Urine Ketones Urine Blood Urine Nitrate Urine Bilirubin Urine Urobilinogen Ur Leukocyte Esterase Urine WBC (Auto) Urine RBC (Auto) Ur Squamous Epith Cells Hyaline Casts Urine HCG, Qual
--- NOTE | 2017-08-15 21:23 | CARD ---
APPROVED REPORT EKG Measurement Heart [id number] <Conclusion> Normal sinus rhythm Normal ECG
[2017-08-15] MEDS ORDERED: Magnesium Hydroxide Susp 30 ml UD PO SCH (22:00)
[2017-08-16] MEDS: Piperacillin/Tazobact 3.375 GM in Sodium Chloride 100 ML IVPB SCH ×3 (06:20→22:49)
[2017-08-16 07:42] LABS: BASO # 0.1 K/uL (0.0-0.2); BASO % 0.7 % (0.0-2.0); EOS # 0.2 K/uL (0.0-0.7); EOS % 2.2 % (0.0-4.0); HEMOGLOBIN 9.2 g/dL (11.0-16.0); LYMPH # 2.6 K/uL (1.0-4.3); LYMPH % 24.2 % (20.0-40.0); MEAN CELL VOLUME 92.8 fL (81.0-99.0); MEAN CORPUSCULAR HGB CONC 35.6 g/dL (33.0-37.0); MEAN PLATELET VOLUME 7.7 fL (7.2-11.7); MONO # 0.7 K/uL (0.0-0.8); NEUT % 65.9 % (50.0-75.0); RBC 2.78 Mil/uL (3.80-5.20); RED CELL DISTRIBUTION WIDTH 12.4 % (11.5-14.5); WHITE BLOOD COUNT 10.6 K/uL (4.8-10.8)
--- NOTE | 2017-08-16 07:49 | CON ---
DATE: INFECTIOUS DISEASE CONSULTATION REQUESTED BY: Ralf Garcia MD REASON FOR CONSULTATION: Sepsis, leukocytosis, and abdominal pain. HISTORY OF PRESENT ILLNESS: The patient is a 41-year-old female who presented to the ER for evaluation of generalized weakness, tiredness, ongoing for about one month which had worsened over the past 3 days. The patient also reports abdominal pain with the change in bowel movements and increased urinary frequency with intermittent fever and chills. The patient states she has been having diarrhea, alternate with constipation, off and on going on for the past 4 months. She denies any loss of weight but states her appetite is poor. On admission, she was found to have an elevated WBC count of 17,000 with serum lactate of 2.5. The patient states she was given p.o. antibiotics as an outpatient 2 days ago, which she took but did not feel better. The patient denies any blood in stools or any melanotic stools. The patient states she has abdominal distention and increased frequency. Denies any hematuria or any history of kidney stones. PAST MEDICAL HISTORY: As reported, diabetes mellitus type 2, hypothyroidism, arthritis, depression, gastritis, hypercholesterolemia, and history of migraine headaches. The patient denies any chronic kidney disease. SOCIAL HISTORY: She does smoke 2 cigarettes a day. Denies alcohol abuse or substance abuse. VACCINATION: The patient is not up to date on influenza vaccination or pneumococcal vaccination, does not recollect tetanus toxoid vaccination also. REVIEW OF SYSTEMS: CONSTITUTIONAL: As reported above, complains of fevers, chills, weakness, tiredness. CARDIOVASCULAR: Denies any chest pain, shortness of breath, or palpitations. RESPIRATORY: Occasional cough but no phlegm. Denies any shortness of breath. GI: As reported above, denies any nausea or vomiting but complains of changing bowel movements and bowel habits with diarrhea most of the times, alternate with pellets of stools. : Frequency, especially she says she has to get up at 5 to 6 times at night. Question of dysuria. Negative for hematuria, negative for vaginal discharge or vaginal bleeding. MUSCULOSKELETAL: Complains of generalized flank pains and low back pain. WILDLIFE BIOSTATION RESEARCH ECOLOGIST: Denies any weakness or numbness except for lower extremities which she feels tingling sensation. PSYCH: Negative for anxiety or any psych disorder. MEDICATIONS: As per chart reviewed. See MARS. PHYSICAL EXAMINATION: GENERAL: The patient is awake and alert, not in any acute distress. VITAL SIGNS: Febrile 99.3, blood pressure 138/91, respirations 21, pulse 104, pulse ox is 99% on room air. HEENT: Pupils are equal and reactive to light and accommodation. Extraocular movements full. Fundus negative. Sclerae nonicteric. Conjunctivae normal. JVP not elevated. NECK: Appears to be supple. LUNGS: Diminished breath sounds. Otherwise, clear. CARDIOVASCULAR: S1 and S2. No murmur or gallop, sinus tachycardia. ABDOMEN: Soft, mild discomfort lower quadrant. No organomegaly appreciated. No distention. No rebound. Bowel sounds, as reported, hypoactive. BACK: Mild flank tenderness, otherwise, unremarkable. No spinal tenderness. EXTREMITIES: No cyanosis, clubbing, or edema. WILDLIFE BIOSTATION RESEARCH ECOLOGIST: No gross deficit, moves all extremities. LAB DATA: WBC on admission was 17.9, presently 12.4; hemoglobin has dropped from 10.8 to 8.7 and 25; platelets 281; creatinine 1, BUN of 15. Blood sugars are elevated at 398, 343. Elevated CRP 19.1. CT of the abdomen and pelvis without p.o. or IV contrast. No acute findings. Last menstrual period, one month ago, scanty, lasts for only 2 days and periods have been variable. Prior period to this period was 3 months ago as reported by the patient. IMPRESSION: 1. Abdominal pain. Etiology not clear. Chronic diarrhea and obstipation. 2. Rule out occult malignancy. 3. Leukocytosis, status post cord sepsis. 4. Type 2 diabetes mellitus, uncontrolled. 5. Chronic obstructive pulmonary disease. 6. Hypertension. 7. Peripheral neuropathy and low back pain. Suggest [place] cultures, diarrhea workup, stool for C. difficile toxin and occult blood. We will also check CEA levels. Continue IV Zosyn 3.375 every 8 hourly as ordered by me on 08/14/2017. Continue IV vancomycin 1 gm every 24 hourly for now, ordered 08/14/2017. Followup cultures to adjust antibiotics. Consider GI evaluation because of anemia and change in hemoglobin and hematocrit. We will follow along with you and make any adjustments as needed. Thank you very much for allowing me to participate in the care of your patient. Yrn Carter MD [facility] # [phone]
[2017-08-16 08:15] LABS: ALB/GLOB RATIO 0.9 (1.0-2.1); ALBUMIN 2.7 g/dL (3.5-5.0); ALT/SGPT 9 U/L (9-52); AST/SGOT 16 U/L (14-36); BLOOD UREA NITROGEN 13 mg/dL (7-17); CALCIUM 8.5 mg/dl (8.6-10.4); GFR AFRICAN-AMERICAN > 60; GFR NON-AFRICAN AMERICAN > 60
[2017-08-16] MEDS: (Novolin R) Insulin Human Regular 100 units/ml vial SC SCH ×4 (08:40→21:53)
[2017-08-16] MEDS: Pantoprazole 40 mg EC Tab PO SCH (10:24)
[2017-08-16] MEDS: Albuterol-Ipratrop 3 mg / 0.5 (3 ml) UD INH PRN ×2 (12:27→20:44)
--- NOTE | 2017-08-16 14:21 | CP.PCM.PN ---
Subjective - Date & Time of Evaluation Date of Evaluation: 08/16/17 Time of Evaluation: 14:19 - Subjective Subjective: CHIEF COMPLAINTS TODAY : urt congestion , post nasal drip , wheezing HG 9.5 ROS. HEENT : N. Resp : No hemoptysis Cardio : No anginal CP, PND, orthopnea, palpitation GI : No abd.pain, n/v ,diarrhea or GI bleeding . SECURITY MONITOR : No headache, vertigo, focal deficit. Musculoskel : No joint swelling , Derm : No rash Psych : Normal affect. Ext : No swelling ,calf pain PE. Pt. is alert awake in no distress. V.S As noted in the chart Head ,ear nose,throat and eyes : Normal. Neck : Supple with normal carotids. Lungs: RONCHI Heart : S1 & S2 normal with S4. No murmur. Abd : Soft non tender with normal bowel sounds. Neuro : Moves all ext. with no localized deficit. Ext : No edema with intact pulses.Non tender calves Derm : No rashes or decubitus ulcer. LABS/RADIOLOGY: ASSESSMENT/PLAN : CONT IV AB Objective - Vital Signs/Intake and Output Vital Signs (last 24 hours): Temp Pulse Resp BP Pulse Ox 98.5 F 95 H 20 143/88 100 08/16/17 07:39 08/16/17 07:39 08/16/17 07:39 08/16/17 07:39 08/16/17 07:39 Intake and Output: 08/16/17 08/16/17 11:59 23:59 Intake Total 800 Balance 800 - Medications Medications: Current Medications Albuterol/Ipratropium (Duoneb 3 Mg/0.5 Mg (3 Ml) Ud) 3 ml INH RQ4 PRN PRN Reason: Wheezing Last Admin: 08/16/17 12:27 Dose: 3 ml Aspirin (Ecotrin) 81 mg PO DAILY [facility] Last Admin: 08/16/17 10:24 Dose: 81 mg Heparin Sodium (Porcine) (Heparin) 5,000 units SC Q12 [facility] Last Admin: 08/16/17 10:24 Dose: 5,000 units Piperacillin Sod/Tazobactam (Sod 3.375 gm/ Sodium Chloride) 100 mls @ 100 mls/ hr IVPB Q8H [facility] PRN Reason: Protocol Last Admin: 08/16/17 06:20 Dose: 100 mls/hr Vancomycin/Sodium Chloride (Vancomycin 1 Gm/Ns 200 Ml) 1 gm in 200 mls @ 133.333 mls/hr IVPB Q24H [facility] PRN Reason: Protocol Stop: 08/19/17 23:31 Last Admin: 08/15/17 23:36 Dose: 133.333 mls/hr Insulin Glargine (Lantus) 30 unit SC HS [facility] Last Admin: 08/15/17 00:59 Dose: 30 units Insulin Human Regular (Novolin R) 0 unit SC [facility] PRN Reason: Protocol Last Admin: 08/16/17 13:04 Dose: 6 unit Losartan Potassium (Cozaar) 50 mg PO DAILY [facility] Last Admin: 08/16/17 10:24 Dose: 50 mg Magnesium Hydroxide (Milk Of Magnesia) 30 ml PO [facility] Last Admin: 08/15/17 01:00 Dose: 30 ml Pantoprazole Sodium (Protonix Ec Tab) 40 mg PO DAILY [facility] Last Admin: 08/16/17 10:24 Dose: 40 mg Sitagliptin Phosphate (Januvia) 100 mg PO DAILY [facility] Last Admin: 08/16/17 10:24 Dose: 100 mg - Labs Labs: 08/16/17 07:36 08/16/17 07:36 PT 10.3 SECONDS (9.7-12.2) 08/14/17 19:50 INR 0.9 08/14/17 19:50 APTT 25 SECONDS (21-34) 08/14/17 19:50
--- NOTE | 2017-08-16 20:30 | CP.PCM.PN ---
Subjective - Date & Time of Evaluation Date of Evaluation: 08/16/17 Time of Evaluation: 20:30 - Subjective Subjective: CHIEF COMPLAINTS TODAY : AFEBRILE. NO ACUTE EVENTS OVERNIGHT. C/O POSTNASAL DRIP/CONGESTION SINUSES ROS. HEENT : N. Resp : No cough, wheezing ,pleuritic CP ,or hemoptysis Cardio : No anginal CP, PND, orthopnea, palpitation GI : No abd.pain, n/v ,diarrhea or GI bleeding . 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 Musculoskel : No joint swelling , Derm : No rash Psych : Normal affect. Ext : No swelling ,calf pain PE. Pt. is alert awake in no distress. V.S As noted in the chart Head ,ear nose,throat and eyes : Normal. Neck : Supple with normal carotids. Lungs: B/L RHONCHI Heart : S1 & S2 normal with S4. No murmur. Abd : Soft non tender with normal bowel sounds. Neuro : Moves all ext. with no localized deficit. Ext : No edema with intact pulses.Non tender calves Derm : No rashes or decubitus ulcer. LABS/RADIOLOGY: WBC 10.6 H/H 9.2 BS 308,289 LFTS N STOOL -VE FOR LEUKOCYTES BLOOD CULTURES-VE TO DATE URINE CULTURE -VE CT ABD/PELVIS W/O PO OR IV CONTRAST -LARGE AMOUNT OF STOOLS. Objective - Vital Signs/Intake and Output Vital Signs (last 24 hours): Temp Pulse Resp BP Pulse Ox 98.5 F 95 H 20 143/88 100 08/16/17 07:39 08/16/17 07:39 08/16/17 07:39 08/16/17 07:39 08/16/17 07:39 - Medications Medications: Current Medications Albuterol/Ipratropium (Duoneb 3 Mg/0.5 Mg (3 Ml) Ud) 3 ml INH RQ4 PRN PRN Reason: Wheezing Last Admin: 08/16/17 12:27 Dose: 3 ml Aspirin (Ecotrin) 81 mg PO DAILY [facility] Last Admin: 08/16/17 10:24 Dose: 81 mg Heparin Sodium (Porcine) (Heparin) 5,000 units SC Q12 [facility] Last Admin: 08/16/17 10:24 Dose: 5,000 units Piperacillin Sod/Tazobactam (Sod 3.375 gm/ Sodium Chloride) 100 mls @ 100 mls/ hr IVPB Q8H [facility] PRN Reason: Protocol Last Admin: 08/16/17 15:05 Dose: 100 mls/hr Vancomycin/Sodium Chloride (Vancomycin 1 Gm/Ns 200 Ml) 1 gm in 200 mls @ 133.333 mls/hr IVPB Q24H [facility] PRN Reason: Protocol Stop: 08/19/17 23:31 Last Admin: 08/15/17 23:36 Dose: 133.333 mls/hr Insulin Glargine (Lantus) 30 unit SC HS [facility] Last Admin: 08/15/17 00:59 Dose: 30 units Insulin Human Regular (Novolin R) 0 unit SC ACHS [facility] PRN Reason: Protocol Last Admin: 08/16/17 17:28 Dose: 3 unit Losartan Potassium (Cozaar) 50 mg PO DAILY [facility] Last Admin: 08/16/17 10:24 Dose: 50 mg Magnesium Hydroxide (Milk Of Magnesia) [address] [facility] Last Admin: 08/15/17 01:00 Dose: 30 ml Pantoprazole Sodium (Protonix Ec Tab) 40 mg PO DAILY [facility] Last Admin: 08/16/17 10:24 Dose: 40 mg Sitagliptin Phosphate (Januvia) 100 mg PO DAILY [facility] Last Admin: 08/16/17 10:24 Dose: 100 mg - Labs Labs: 08/16/17 07:36 08/16/17 07:36 PT 10.3 SECONDS (9.7-12.2) 08/14/17 19:50 INR 0.9 08/14/17 19:50 APTT 25 SECONDS (21-34) 08/14/17 19:50 Assessment and Plan (1) Abdominal pain Assessment & Plan: patient has abdominal pain and bloating with the diarrhea alternating with constipation And anemia. r/o occult malignancy. CONSIDER UGI W SMALL BOWEL SERIES. ?GI EVALUATION. CONTINUE IV ABX. IV ZOSYN /IV VANCOMYCIN Status: Acute (2) Bronchitis Assessment & Plan: MRSA SCREEN. ESR. CRP. Status: Acute (3) Hypertension Status: Chronic (4) Uncontrolled diabetes mellitus Status: Chronic (5) Diabetic neuropathy Status: Chronic
[2017-08-16] MEDS: (Lantus) Insulin Glargine, Recombinant SC SCH (21:55)
[2017-08-16] MEDS: Vancomycin 1 gm/NS 200 ml 1 GM/200 ML BAG IVPB SCH (23:37)
[2017-08-17] MEDS: Piperacillin/Tazobact 3.375 GM in Sodium Chloride 100 ML IVPB SCH ×3 (06:16→22:17)
[2017-08-17] MEDS: (Novolin R) Insulin Human Regular 100 units/ml vial SC SCH ×4 (08:24→21:41)
[2017-08-17 08:32] LABS: BASO # 0.1 K/uL (0.0-0.2); BASO % 0.5 % (0.0-2.0); EOS # 0.2 K/uL (0.0-0.7); EOS % 1.9 % (0.0-4.0); HEMOGLOBIN 10.3 g/dL (11.0-16.0); LYMPH # 2.2 K/uL (1.0-4.3); LYMPH % 17.9 % (20.0-40.0); MEAN CELL VOLUME 93.9 fL (81.0-99.0); MEAN CORPUSCULAR HEMOGLOBIN 33.2 pg (27.0-31.0); MEAN CORPUSCULAR HGB CONC 35.3 g/dL (33.0-37.0); MEAN PLATELET VOLUME 8.1 fL (7.2-11.7); MONO # 0.7 K/uL (0.0-0.8); MONO % 5.7 % (0.0-10.0); NEUT # 9.2 K/uL (1.8-7.0); RBC 3.1 Mil/uL (3.80-5.20); RED CELL DISTRIBUTION WIDTH 12.4 % (11.5-14.5); WHITE BLOOD COUNT 12.4 K/uL (4.8-10.8)
[2017-08-17 08:45] LABS: ALB/GLOB RATIO 0.9 (1.0-2.1); ALBUMIN 3.3 g/dL (3.5-5.0); ALT/SGPT 9 U/L (9-52); AST/SGOT 21 U/L (14-36); BLOOD UREA NITROGEN 14 mg/dL (7-17); GFR AFRICAN-AMERICAN > 60; GFR NON-AFRICAN AMERICAN > 60
[2017-08-17] MEDS: Pantoprazole 40 mg EC Tab PO SCH (09:52)
--- NOTE | 2017-08-17 14:56 | CP.PCM.PN ---
Subjective - Date & Time of Evaluation Date of Evaluation: 08/17/17 Time of Evaluation: 14:55 - Subjective Subjective: CHIEF COMPLAINTS TODAY : COUGH WITH WHEEZING ROS. HEENT : N. Resp : No hemoptysis Cardio : No anginal CP, PND, orthopnea, palpitation GI : No abd.pain, n/v ,diarrhea or GI bleeding . 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 Musculoskel : No joint swelling , Derm : No rash Psych : Normal affect. Ext : No swelling ,calf pain PE. Pt. is alert awake in no distress. V.S As noted in the chart Head ,ear nose,throat and eyes : Normal. Neck : Supple with normal carotids. Lungs: RONCHI Heart : S1 & S2 normal with S4. No murmur. Abd : Soft non tender with normal bowel sounds. Neuro : Moves all ext. with no localized deficit. Ext : No edema with intact pulses.Non tender calves Derm : No rashes or decubitus ulcer. LABS/RADIOLOGY: ASSESSMENT/PLAN : CT SINUSES/CHEST IV AB/NEB Objective - Vital Signs/Intake and Output Vital Signs (last 24 hours): Temp Pulse Resp BP Pulse Ox 98.5 F 99 H 20 150/99 H 99 08/17/17 09:06 08/17/17 09:06 08/17/17 09:06 08/17/17 09:06 08/17/17 09:06 Intake and Output: 08/17/17 08/17/17 11:59 23:59 Intake Total 640 600 Balance 640 600 - Medications Medications: Current Medications Albuterol/Ipratropium (Duoneb 3 Mg/0.5 Mg (3 Ml) Ud) 3 ml INH RQ4 PRN PRN Reason: Wheezing Last Admin: 08/16/17 20:44 Dose: 3 ml Aspirin (Ecotrin) 81 mg PO DAILY [facility] Last Admin: 08/17/17 09:52 Dose: 81 mg Heparin Sodium (Porcine) (Heparin) 5,000 units SC Q12 [facility] Last Admin: 08/17/17 09:52 Dose: 5,000 units Piperacillin Sod/Tazobactam (Sod 3.375 gm/ Sodium Chloride) 100 mls @ 100 mls/ hr IVPB Q8H [facility] PRN Reason: Protocol Last Admin: 08/17/17 14:25 Dose: 100 mls/hr Vancomycin/Sodium Chloride (Vancomycin 1 Gm/Ns 200 Ml) 1 gm in 200 mls @ 133.333 mls/hr IVPB Q24H [facility] PRN Reason: Protocol Stop: 08/19/17 23:31 Last Admin: 08/16/17 23:37 Dose: 133.333 mls/hr Insulin Glargine (Lantus) 30 unit SC HS [facility] Last Admin: 08/16/17 21:55 Dose: 30 units Insulin Human Regular (Novolin R) 0 unit SC [facility] PRN Reason: Protocol Last Admin: 08/17/17 12:27 Dose: 4 unit Lactulose (Enulose) 20 gm PO HS [facility] Last Admin: 08/16/17 21:51 Dose: 20 gm Losartan Potassium (Cozaar) 50 mg PO DAILY [facility] Last Admin: 08/17/17 09:51 Dose: 50 mg Pantoprazole Sodium (Protonix Ec Tab) 40 mg PO DAILY [facility] Last Admin: 08/17/17 09:52 Dose: 40 mg Sitagliptin Phosphate (Januvia) 100 mg PO DAILY [facility] Last Admin: 08/17/17 09:52 Dose: 100 mg - Labs Labs: 08/17/17 08:08 08/17/17 08:08 PT 10.3 SECONDS (9.7-12.2) 08/14/17 19:50 INR 0.9 08/14/17 19:50 APTT 25 SECONDS (21-34) 08/14/17 19:50
[2017-08-17] MEDS: Albuterol-Ipratrop 3 mg / 0.5 (3 ml) UD INH PRN (19:29)
[2017-08-17] MEDS: (Lantus) Insulin Glargine, Recombinant SC SCH (21:40)
[2017-08-17] MEDS: Vancomycin 1 gm/NS 200 ml 1 GM/200 ML BAG IVPB SCH (23:39)
[2017-08-18] MEDS: Albuterol-Ipratrop 3 mg / 0.5 (3 ml) UD INH PRN (01:34)
[2017-08-18] MEDS: Piperacillin/Tazobact 3.375 GM in Sodium Chloride 100 ML IVPB SCH ×3 (06:23→22:15)
[2017-08-18 07:57] LABS: BASO # 0.1 K/uL (0.0-0.2); BASO % 0.9 % (0.0-2.0); EOS # 0.3 K/uL (0.0-0.7); EOS % 2.4 % (0.0-4.0); HEMOGLOBIN 9.1 g/dL (11.0-16.0); LYMPH # 2.1 K/uL (1.0-4.3); LYMPH % 20.2 % (20.0-40.0); MEAN CELL VOLUME 92.7 fL (81.0-99.0); MEAN CORPUSCULAR HEMOGLOBIN 33.1 pg (27.0-31.0); MEAN CORPUSCULAR HGB CONC 35.7 g/dL (33.0-37.0); MEAN PLATELET VOLUME 7.7 fL (7.2-11.7); MONO # 0.5 K/uL (0.0-0.8); MONO % 5.2 % (0.0-10.0); NEUT # 7.5 K/uL (1.8-7.0); NEUT % 71.3 % (50.0-75.0); RBC 2.76 Mil/uL (3.80-5.20); RED CELL DISTRIBUTION WIDTH 12.6 % (11.5-14.5); WHITE BLOOD COUNT 10.5 K/uL (4.8-10.8)
[2017-08-18 08:04] LABS: ALB/GLOB RATIO 0.8 (1.0-2.1); BLOOD UREA NITROGEN 15 mg/dL (7-17); GFR AFRICAN-AMERICAN > 60; GFR NON-AFRICAN AMERICAN > 60
[2017-08-18 08:14] LABS: ALBUMIN 2.8 g/dL (3.5-5.0); ALT/SGPT 11 U/L (9-52); AST/SGOT 26 U/L (14-36); CALCIUM 8.7 mg/dl (8.6-10.4)
[2017-08-18] MEDS: (Novolin R) Insulin Human Regular 100 units/ml vial SC SCH ×4 (08:27→21:39)
[2017-08-18] MEDS ORDERED: Iodixanol 320 MG/ML 100 ML BOTTLE IV ONE (08:53)
[2017-08-18] MEDS: Pantoprazole 40 mg EC Tab PO SCH (10:10)
--- NOTE | 2017-08-18 10:24 | CT ---
CT sinuses History: Sinusitis. Comparison: None available. Technique: Multiple contiguous axial images were performed through the paranasal sinuses without the use of intravenous contrast. Subsequently, sagittal and coronal reformatted images were obtained. This CT exam was performed using one or more of the following dose reduction techniques: Automated exposure control, adjustment of the mA and/or kV according to patient size, and/or use of iterative reconstruction technique. Findings: Moderate mucosal opacification with fluid retention seen within left maxillary sinus. Mild mucosal thickening and opacification of the right maxillary sinus. Emanating from the medial wall of the right maxillary sinus there is 9 millimeter mucosal retention cyst and or polyp. Sphenoid sinus is preserved. Moderate mucosal thickening of the ethmoid air cells. Frontal sinus is preserved. Bilateral mastoid air cells are preserved. Moderate mucosal thickening opacification of the middle and inferior nasal turbinates. Partial opacification of the bilateral ostiomeatal units. Incidentally noted at the posterior left maxilla, there is partial extension of a posterior tooth to the level of inferior maxillary sinus. Clinical correlation. Correlation with maxillofacial CT may be helpful if clinically indicated. Metallic streak artifact from dental hardware. Clinical correlation. Impression: Sinus mucosal disease as above. Additional findings as above.
--- NOTE | 2017-08-18 10:32 | CT ---
CT chest History: Pneumonia. Comparison: X-ray dated 08/14/2017 Technique: Multiple contiguous axial images were performed through the chest with the use of intravenous contrast. Subsequently, sagittal coronal reformatted images were obtained. This CT exam was performed using one or more of the following dose reduction techniques: Automated exposure control, adjustment of the mA and/or kV according to patient size, and/or use of iterative reconstruction technique. Findings: Right lung: Grossly preserved. Left lung: Mild atelectasis within the inferior aspect of the left upper lobe. Additional mild linear atelectasis within the anterior aspect of the left lower lobe inferiorly. Trachea thru central airways are patent. Shotty axillary lymph nodes. 1.1 centimeter right peritracheal lymph node. Shotty pre-vascular lymph nodes measuring up to 9 millimeters. Precarinal lymph node measures 1.1 centimeters. No pleural or pericardial effusion. Prominent liver measuring up to 22 centimeters in AP dimension. Mild increased attenuation of the hepatic parenchymal cortex which may represent mild fatty infiltration. Clinical correlation. Moderate scoliotic curvature of the mid thoracic spine. Loss of height of the left aspect of the T7 vertebral body. Bony ankylosis of several left posterior ribs including the left 6th, 7th, and 8th ribs. Impression: 1. Linear atelectatic changes in the left lung as described above. 2. Few shotty axillary and mediastinal lymph nodes as above. 3. Prominent liver measuring up to 22 centimeters in AP dimension. Mild increased attenuation of the hepatic parenchymal cortex which may represent mild fatty infiltration. Clinical correlation. 4. Bony deformities as described above. Additional findings as above.
--- NOTE | 2017-08-18 12:40 | CP.PCM.PN ---
Subjective - Date & Time of Evaluation Date of Evaluation: 08/18/17 Time of Evaluation: 12:39 - Subjective Subjective: CHIEF COMPLAINTS TODAY : COUGH /WHEEZING ROS. HEENT : N. Resp : No hemoptysis Cardio : No anginal CP, PND, orthopnea, palpitation GI : No abd.pain, n/v ,diarrhea or GI bleeding . 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 Musculoskel : No joint swelling , Derm : No rash Psych : Normal affect. Ext : No swelling ,calf pain PE. Pt. is alert awake in no distress. V.S As noted in the chart Head ,ear nose,throat and eyes : Normal. Neck : Supple with normal carotids. Lungs: RONCHI Heart : S1 & S2 normal with S4. No murmur. Abd : Soft non tender with normal bowel sounds. Neuro : Moves all ext. with no localized deficit. Ext : No edema with intact pulses.Non tender calves Derm : No rashes or decubitus ulcer. LABS/RADIOLOGY: CT SINUS : MUCOSAL DISEASE , CT CHEST : NOTHING ACUTE ASSESSMENT/PLAN : CONT IV AB NEBULISER Objective - Vital Signs/Intake and Output Vital Signs (last 24 hours): Temp Pulse Resp BP Pulse Ox 98.5 F 92 H 20 126/82 100 08/18/17 07:26 08/18/17 07:26 08/18/17 07:26 08/18/17 07:26 08/18/17 07:26 Intake and Output: 08/18/17 08/18/17 11:59 23:59 Intake Total 640 Balance 640 - Medications Medications: Current Medications Albuterol/Ipratropium (Duoneb 3 Mg/0.5 Mg (3 Ml) Ud) 3 ml INH RQ4 PRN PRN Reason: Wheezing Last Admin: 08/18/17 01:34 Dose: 3 ml Aspirin (Ecotrin) 81 mg PO DAILY [facility] Last Admin: 08/18/17 10:10 Dose: 81 mg Piperacillin Sod/Tazobactam (Sod 3.375 gm/ Sodium Chloride) 100 mls @ 100 mls/ hr IVPB Q8H [facility] PRN Reason: Protocol Last Admin: 08/18/17 06:23 Dose: 100 mls/hr Vancomycin/Sodium Chloride (Vancomycin 1 Gm/Ns 200 Ml) 1 gm in 200 mls @ 133.333 mls/hr IVPB Q24H [facility] PRN Reason: Protocol Stop: 08/19/17 23:31 Last Admin: 08/17/17 23:39 Dose: 133.333 mls/hr Insulin Glargine (Lantus) 30 unit SC HS [facility] Last Admin: 08/17/17 21:40 Dose: 30 units Insulin Human Regular (Novolin R) 0 unit SC ACHS [facility] PRN Reason: Protocol Last Admin: 08/18/17 12:23 Dose: 4 unit Lactulose (Enulose) 20 gm PO HS [facility] Last Admin: 08/17/17 21:39 Dose: 20 gm Losartan Potassium (Cozaar) 50 mg PO DAILY [facility] Last Admin: 08/18/17 10:10 Dose: 50 mg Pantoprazole Sodium (Protonix Ec Tab) 40 mg PO DAILY [facility] Last Admin: 08/18/17 10:10 Dose: 40 mg Sitagliptin Phosphate (Januvia) 100 mg PO DAILY [facility] Last Admin: 08/18/17 10:11 Dose: 100 mg - Labs Labs: 08/18/17 07:18 08/18/17 07:18 PT 10.3 SECONDS (9.7-12.2) 08/14/17 19:50 INR 0.9 08/14/17 19:50 APTT 25 SECONDS (21-34) 08/14/17 19:50
--- NOTE | 2017-08-18 12:40 | CP.PCM.PN ---
Subjective - Date & Time of Evaluation Date of Evaluation: 08/18/17 Time of Evaluation: 12:40 - Subjective Subjective: CHIEF COMPLAINTS TODAY : COUGH /WHEEZING ROS. HEENT : N. Resp : No hemoptysis Cardio : No anginal CP, PND, orthopnea, palpitation GI : No abd.pain, n/v ,diarrhea or GI bleeding . 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 Musculoskel : No joint swelling , Derm : No rash Psych : Normal affect. Ext : No swelling ,calf pain PE. Pt. is alert awake in no distress. V.S As noted in the chart Head ,ear nose,throat and eyes : Normal. Neck : Supple with normal carotids. Lungs: RONCHI Heart : S1 & S2 normal with S4. No murmur. Abd : Soft non tender with normal bowel sounds. Neuro : Moves all ext. with no localized deficit. Ext : No edema with intact pulses.Non tender calves Derm : No rashes or decubitus ulcer. LABS/RADIOLOGY: CT SINUS : MUCOSAL DISEASE , CT CHEST : NOTHING ACUTE ASSESSMENT/PLAN : CONTINUE IV ABX. IV ZOSYN /IV VANCOMYCIN NEBULISER PRN PER PMD. Objective - Vital Signs/Intake and Output Vital Signs (last 24 hours): Temp Pulse Resp BP Pulse Ox 98.5 F 92 H 20 126/82 100 08/18/17 07:26 08/18/17 07:26 08/18/17 07:26 08/18/17 07:26 08/18/17 07:26 Intake and Output: 08/18/17 08/18/17 06:59 18:59 Intake Total 1290 Balance 1290 - Medications Medications: Current Medications Albuterol/Ipratropium (Duoneb 3 Mg/0.5 Mg (3 Ml) Ud) 3 ml INH RQ4 PRN PRN Reason: Wheezing Last Admin: 08/18/17 01:34 Dose: 3 ml Aspirin (Ecotrin) 81 mg PO DAILY [facility] Last Admin: 08/18/17 10:10 Dose: 81 mg Piperacillin Sod/Tazobactam (Sod 3.375 gm/ Sodium Chloride) 100 mls @ 100 mls/ hr IVPB Q8H [facility] PRN Reason: Protocol Last Admin: 08/18/17 06:23 Dose: 100 mls/hr Vancomycin/Sodium Chloride (Vancomycin 1 Gm/Ns 200 Ml) 1 gm in 200 mls @ 133.333 mls/hr IVPB Q24H [facility] PRN Reason: Protocol Stop: 08/19/17 23:31 Last Admin: 08/17/17 23:39 Dose: 133.333 mls/hr Insulin Glargine (Lantus) 30 unit SC HS [facility] Last Admin: 08/17/17 21:40 Dose: 30 units Insulin Human Regular (Novolin R) 0 unit SC ACHS [facility] PRN Reason: Protocol Last Admin: 08/18/17 12:23 Dose: 4 unit Lactulose (Enulose) 20 gm PO HS [facility] Last Admin: 08/17/17 21:39 Dose: 20 gm Losartan Potassium (Cozaar) 50 mg PO DAILY [facility] Last Admin: 08/18/17 10:10 Dose: 50 mg Pantoprazole Sodium (Protonix Ec Tab) 40 mg PO DAILY [facility] Last Admin: 08/18/17 10:10 Dose: 40 mg Sitagliptin Phosphate (Januvia) 100 mg PO DAILY [facility] Last Admin: 08/18/17 10:11 Dose: 100 mg - Labs Labs: 08/18/17 07:18 08/18/17 07:18 PT 10.3 SECONDS (9.7-12.2) 08/14/17 19:50 INR 0.9 08/14/17 19:50 APTT 25 SECONDS (21-34) 08/14/17 19:50 Assessment and Plan (1) Abdominal pain Status: Acute (2) Bronchitis Status: Acute (3) Hypertension Status: Chronic (4) Uncontrolled diabetes mellitus Status: Chronic (5) Diabetic neuropathy Status: Chronic
[2017-08-18] MEDS: (Lantus) Insulin Glargine, Recombinant SC SCH (21:42)
[2017-08-18] MEDS: Vancomycin 1 gm/NS 200 ml 1 GM/200 ML BAG IVPB SCH (23:25)
[2017-08-19] MEDS: Piperacillin/Tazobact 3.375 GM in Sodium Chloride 100 ML IVPB SCH ×3 (06:20→22:54)
[2017-08-19 07:00] LABS: BASO # 0.1 K/uL (0.0-0.2); BASO % 0.6 % (0.0-2.0); EOS # 0.2 K/uL (0.0-0.7); EOS % 2.1 % (0.0-4.0); HEMOGLOBIN 9.4 g/dL (11.0-16.0); LYMPH # 2.1 K/uL (1.0-4.3); MEAN CELL VOLUME 92.3 fL (81.0-99.0); MEAN CORPUSCULAR HEMOGLOBIN 32.2 pg (27.0-31.0); MEAN CORPUSCULAR HGB CONC 34.9 g/dL (33.0-37.0); MEAN PLATELET VOLUME 7.6 fL (7.2-11.7); MONO # 0.8 K/uL (0.0-0.8); MONO % 6.8 % (0.0-10.0); NEUT % 71.5 % (50.0-75.0); RBC 2.94 Mil/uL (3.80-5.20); RED CELL DISTRIBUTION WIDTH 12.4 % (11.5-14.5); WHITE BLOOD COUNT 11.2 K/uL (4.8-10.8)
[2017-08-19 07:48] LABS: ALB/GLOB RATIO 0.9 (1.0-2.1); ALBUMIN 2.9 g/dL (3.5-5.0); ALT/SGPT 19 U/L (9-52); AST/SGOT 24 U/L (14-36); BLOOD UREA NITROGEN 14 mg/dL (7-17); CALCIUM 8.4 mg/dl (8.6-10.4); GFR AFRICAN-AMERICAN > 60; GFR NON-AFRICAN AMERICAN > 60
[2017-08-19] MEDS: (Novolin R) Insulin Human Regular 100 units/ml vial SC SCH ×4 (07:58→21:32)
--- NOTE | 2017-08-19 08:28 | CP.PCM.CON ---
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 GI consultation for altered bowel habits. Patient notes productive cough after sick contact at work two months ago. Patient developed fever, malaise, and chills this past week leading to ER presentation. Denies taking antibiotics outpatient. Active treatment of Bronchitis. Patient admits to constipation for five years with worsening of symptoms for the last six months. Notes failed outpatient use of laxatives, and stool softeners that usually result in diarrhea for one to two days followed by recurrence of irregular small, hard stools with straining. Denies consistent use of any therapies for relief. Associated nausea, early satiety, bloating, heartburn, acid reflux, abdominal discomfort, and low back pain. Denies regular use of tylenol or NSAIDs for low back pain. Drinks 2-4 glasses of water daily. Endorses at least six servings of fruits and vegetables daily. No prior EGD or colonoscopy. Surgical History: right hallux debridement 10/2015 Social History: quit tobacco 2 weeks- prior 1-5 cigarettes [id number] years; denies alcohol or illicit drug use Family History: maternal aunt-colon cancer diagnosed in 60s of age, maternal grandmother-colon cancer dianosed in 70s of age; mother-CAD- father- Alcohol abuse endorses possible cirrhosis and liver cancer Review of Systems - Constitutional Constitutional: absent: As Per HPI, Anorexia, Daytime Sleepiness, Excessive Sweating, Fatigue, Fever, Frequent Falls, Headache, Increased Appetite, Lethargy , Malaise, Night Sweats, Snoring, Sleep Apnea, Weight Gain, Weight Loss, Weakness, Other - EENT Eyes: absent: Dry Eye, Itchy Eyes, Loss of Vision Ears: absent: Ear Discharge, Dizziness Nose/Mouth/Throat: absent: Dysphagia, Hoarsness - Cardiovascular Cardiovascular: absent: Chest Pain, Lightheadedness, Paroxysmal Nocturnal Dyspnea - Respiratory Respiratory: absent: Cough, Wheezing - Gastrointestinal Gastrointestinal: Abdominal Pain, Bloating, Constipation, Early Satiety, Heartburn, Nausea. absent: Coffee Ground Emesis, Diarrhea, Dysphagia, Excessive Flatus, Hematemesis, Hematochezia, Loose Stools, Melena, Odynophagia, Temesmus - Genitourinary Genitourinary: absent: Dysuria, Urinary Frequency - Musculoskeletal Musculoskeletal: Back Pain. absent: Myalgias - Integumentary Integumentary: absent: Erythema, Rash - Neurological Neurological: absent: Dizziness, Memory Loss - Psychiatric Psychiatric: absent: Confusion, Memory Loss - Endocrine Endocrine: absent: Excessive Sweating, Heat Intolorance - Hematologic/Lymphatic Hematologic: absent: Easy Bleeding, Easy Bruising Past Patient History - Infectious Disease Hx of Infectious Diseases: None - Past Medical History & Family History Past Medical History?: Yes - Past Social History Smoking Status: Former Smoker - CARDIAC Hx Hypercholesterolemia: Yes (DENIES 08/14/17) Hx Hypertension: Yes - PULMONARY Hx Respiratory Disorders: Yes Hx Asthma: Yes - NEUROLOGICAL Hx Migraine: Yes - HEENT Hx HEENT Problems: Yes Hx Glaucoma: Yes - RENAL Hx Chronic Kidney Disease: No - ENDOCRINE/METABOLIC Hx Hypothyroidism: Yes (DENIES 08/14/17) - HEMATOLOGICAL/ONCOLOGICAL Hx Blood Disorders: No - INTEGUMENTARY Hx Dermatological Problems: Yes Hx Eczema: Yes (MOSTLY ON ARMS) Other/Comment: LEFT BREAST MASS - MUSCULOSKELETAL/RHEUMATOLOGICAL Hx Arthritis: Yes Hx Falls: No - GASTROINTESTINAL Hx Gastritis: Yes - GENITOURINARY/GYNECOLOGICAL Hx Genitourinary Disorders: No - PSYCHIATRIC Hx Depression: Yes Hx Substance Use: No - SURGICAL HISTORY Hx Surgeries: Yes Other/Comment: LEFT BREAST BX.-LOCAL ONLY - ANESTHESIA Hx Anesthesia: Yes (LOCAL ONLY -BREAST BX.-LEFT) Hx Anesthesia Reactions: No Hx Malignant Hyperthermia: No Meds Allergies/Adverse Reactions: Allergies Allergy/AdvReac Type Severity Reaction Status Date / Time tomato Allergy Verified 08/14/17 19:19 chocolate Allergy Uncoded 08/14/17 19:19 KETCHUP Allergy Uncoded 08/14/17 19:19 shelfish Allergy Uncoded 08/14/17 19:19 strawbery Allergy Uncoded 08/14/17 19:19 - Medications Medications: Current Medications Albuterol/Ipratropium (Duoneb 3 Mg/0.5 Mg (3 Ml) Ud) 3 ml INH RQ4 PRN PRN Reason: Wheezing Last Admin: 08/18/17 01:34 Dose: 3 ml Aspirin (Ecotrin) 81 mg PO DAILY [facility] Last Admin: 08/18/17 10:10 Dose: 81 mg Heparin Sodium (Porcine) (Heparin) 5,000 units SC Q12 [facility] Last Admin: 08/18/17 21:33 Dose: Not Given Piperacillin Sod/Tazobactam (Sod 3.375 gm/ Sodium Chloride) 100 mls @ 100 mls/ hr IVPB Q8H [facility] PRN Reason: Protocol Last Admin: 08/19/17 06:20 Dose: 100 mls/hr Vancomycin/Sodium Chloride (Vancomycin 1 Gm/Ns 200 Ml) 1 gm in 200 mls @ 133.333 mls/hr IVPB Q24H [facility] PRN Reason: Protocol Stop: 08/19/17 23:31 Last Admin: 08/18/17 23:25 Dose: 133.333 mls/hr Insulin Glargine (Lantus) 30 unit SC HS [facility] Last Admin: 08/18/17 21:42 Dose: 30 units Insulin Human Regular (Novolin R) 0 unit SC ACHS [facility] PRN Reason: Protocol Last Admin: 08/19/17 07:58 Dose: 3 unit Lactulose (Enulose) 20 gm PO HS [facility] Last Admin: 08/18/17 21:33 Dose: 20 gm Losartan Potassium (Cozaar) 50 mg PO DAILY [facility] Last Admin: 08/18/17 10:10 Dose: 50 mg Pantoprazole Sodium (Protonix Ec Tab) 40 mg PO DAILY [facility] Last Admin: 08/18/17 10:10 Dose: 40 mg Sitagliptin Phosphate (Januvia) 100 mg PO DAILY [facility] Last Admin: 08/18/17 10:11 Dose: 100 mg Physical Exam - Constitutional Appears: Non-toxic, No Acute Distress - Head Exam Head Exam: ATRAUMATIC, NORMOCEPHALIC - Eye Exam Eye Exam: EOMI, PERRL. absent: Scleral icterus Pupil Exam: PERRL. absent: Miosis, Mydriatic - ENT Exam ENT Exam: Mucous Membranes Moist, Normal Oropharynx - Neck Exam Neck exam: Positive for: Full Rom, Normal Inspection - Respiratory Exam Respiratory Exam: Clear to Auscultation Bilateral. absent: Rales, Rhonchi, Wheezes - Cardiovascular Exam Cardiovascular Exam: RRR, +S1, +S2. absent: Gallop, Rubs - GI/Abdominal Exam GI & Abdominal Exam: Distended, Normal Bowel Sounds, Organomegaly, Soft, Tenderness. absent: Guarding, Rebound, Rigid Additional comments: mildly distended, mild diffuse discomfort, hepatomegaly - Extremities Exam Extremities exam: Positive for: normal inspection. Negative for: pedal edema - Neurological Exam Neurological exam: Alert, Oriented x3 - Psychiatric Exam Psychiatric exam: Normal Affect, Normal Mood - Skin Skin Exam: Dry, Intact, Normal Color, Warm Results - Vital Signs Recent Vital Signs: Last Vital Signs Temp 98.6 F 08/19/17 00:00 Pulse 94 H 08/19/17 00:00 Resp 20 08/19/17 00:00 BP 129/86 08/19/17 00:00 Pulse Ox 100 08/19/17 00:00 - Labs Result Diagrams: 08/19/17 06:47 08/19/17 06:47 Labs: Laboratory Results - last 24 hr 08/18/17 08/18/17 08/18/17 07:18 07:18 11:05 WBC 10.5 RBC 2.76 L Hgb 9.1 L Hct 25.6 L MCV 92.7 MCH 33.1 H MCHC 35.7 RDW 12.6 Plt Count 316 MPV 7.7 Neut % (Auto) 71.3 Lymph % (Auto) 20.2 [place] % (Auto) 5.2 Eos % (Auto) 2.4 Baso % (Auto) 0.9 Neut # (Auto) 7.5 H Lymph # (Auto) 2.1 [place] # (Auto) 0.5 Eos # (Auto) 0.3 Baso # (Auto) 0.1 Sodium 136 Potassium 4.3 Chloride 104 Carbon Dioxide 23 Anion Gap 13 BUN 15 Creatinine 1.0 Est GFR ( Amer) > 60 Est GFR (Non-Af Amer) > 60 POC Glucose (mg/dL) 288 H Random Glucose 215 H Calcium 8.7 Total Bilirubin 0.2 AST 26 ALT 11 Alkaline Phosphatase 81 Total Protein 6.2 L Albumin 2.8 L Globulin 3.4 Albumin/Globulin Ratio 0.8 L 08/18/17 08/18/17 08/19/17 16:26 21:37 06:47 WBC 11.2 H RBC 2.94 L Hgb 9.4 L Hct 27.1 L MCV 92.3 MCH 32.2 H MCHC 34.9 RDW 12.4 Plt Count 339 MPV 7.6 Neut % (Auto) 71.5 Lymph % (Auto) 19.0 L [place] % (Auto) 6.8 Eos % (Auto) 2.1 Baso % (Auto) 0.6 Neut # (Auto) 8.0 H Lymph # (Auto) 2.1 [place] # (Auto) 0.8 Eos # (Auto) 0.2 Baso # (Auto) 0.1 Sodium Potassium Chloride Carbon Dioxide Anion Gap BUN Creatinine Est GFR ( Amer) Est GFR (Non-Af Amer) POC Glucose (mg/dL) 234 H 226 H Random Glucose Calcium Total Bilirubin AST ALT Alkaline Phosphatase Total Protein Albumin Globulin Albumin/Globulin Ratio 08/19/17 06:47 WBC RBC Hgb Hct MCV MCH MCHC RDW Plt Count MPV Neut % (Auto) Lymph % (Auto) [place] % (Auto) Eos % (Auto) Baso % (Auto) Neut # (Auto) Lymph # (Auto) [place] # (Auto) Eos # (Auto) Baso # (Auto) Sodium 134 Potassium 4.4 Chloride 102 Carbon Dioxide 26 Anion Gap 11 BUN 14 Creatinine 1.0 Est GFR ( Amer) > 60 Est GFR (Non-Af Amer) > 60 POC Glucose (mg/dL) Random Glucose 228 H Calcium 8.4 L Total Bilirubin 0.4 AST 24 ALT 19 Alkaline Phosphatase 81 Total Protein 6.3 Albumin 2.9 L Globulin 3.4 Albumin/Globulin Ratio 0.9 L Assessment & Plan - Assessment and Plan (Free Text) Assessment: 41yo woman with PMH of Constipation, 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 GI consultation for altered bowel habits. Active treatment of Bronchitis on IV antibiotics and constipation with failed outpatient therapies for five years and worsening symptoms for six months. No prior EGD or colonoscopy. Plan: -multifactorial- constipation, possible gastroparesis component -08/14 CT A/P-stool retention R>L -start bowel regimen- Miralax BID, Dulcolax 10mg once -improve oral hydration -increase fiber intake -small, frequent meals -check TSH/FT4 with history of hypothyroidism, currently not on therapy, previously on therapy with last TSH/FT4 being normal on endocrinology evaluation 10/2015 -check HBA1c with uncontrolled T2DM, HBA1c 10 in 04/2017 -will benefit from elective outpatient colonoscopy given 5 year history of constipation and family history of colon cancer <StevenHectorShreyas Y - Last Filed: 08/19/17 17:01> Meds - Medications Medications: Current Medications Albuterol/Ipratropium (Duoneb 3 Mg/0.5 Mg (3 Ml) Ud) 3 ml INH RQ4 PRN PRN Reason: Wheezing Last Admin: 08/19/17 09:51 Dose: 3 ml Aspirin (Ecotrin) 81 mg PO DAILY [facility] Last Admin: 08/19/17 09:49 Dose: 81 mg Heparin Sodium (Porcine) (Heparin) 5,000 units SC Q12 [facility] Last Admin: 08/19/17 09:49 Dose: Not Given Piperacillin Sod/Tazobactam (Sod 3.375 gm/ Sodium Chloride) 100 mls @ 100 mls/ hr IVPB Q8H [facility] PRN Reason: Protocol Last Admin: 08/19/17 14:42 Dose: 100 mls/hr Vancomycin/Sodium Chloride (Vancomycin 1 Gm/Ns 200 Ml) 1 gm in 200 mls @ 133.333 mls/hr IVPB Q24H [facility] PRN Reason: Protocol Stop: 08/19/17 23:31 Last Admin: 08/18/17 23:25 Dose: 133.333 mls/hr Insulin Glargine (Lantus) 30 unit SC HS [facility] Last Admin: 08/18/17 21:42 Dose: 30 units Insulin Human Regular (Novolin R) 0 unit SC ACHS [facility] PRN Reason: Protocol Last Admin: 08/19/17 12:30 Dose: 4 unit Lactulose (Enulose) 20 gm PO HS [facility] Last Admin: 08/18/17 21:33 Dose: 20 gm Losartan Potassium (Cozaar) 50 mg PO DAILY [facility] Last Admin: 08/19/17 09:49 Dose: 50 mg Pantoprazole Sodium (Protonix Ec Tab) 40 mg PO DAILY [facility] Last Admin: 08/19/17 09:49 Dose: 40 mg Polyethylene Glycol (Miralax) 17 gm PO BID [facility] Last Admin: 08/19/17 09:49 Dose: 17 gm Sitagliptin Phosphate (Januvia) 100 mg PO DAILY [facility] Last Admin: 08/19/17 09:49 Dose: 100 mg Results - Vital Signs Recent Vital Signs: Last Vital Signs Temp 98.4 F 08/19/17 07:05 Pulse 82 08/19/17 07:05 Resp 20 08/19/17 07:05 BP 124/69 08/19/17 07:05 Pulse Ox 97 08/19/17 07:05 - Labs Result Diagrams: 08/19/17 06:47 08/19/17 06:47 Labs: Laboratory Results - last 24 hr 08/18/17 08/19/17 08/19/17 21:37 06:47 06:47 WBC 11.2 H RBC 2.94 L Hgb 9.4 L Hct 27.1 L MCV 92.3 MCH 32.2 H MCHC 34.9 RDW 12.4 Plt Count 339 MPV 7.6 Neut % (Auto) 71.5 Lymph % (Auto) 19.0 L [place] % (Auto) 6.8 Eos % (Auto) 2.1 Baso % (Auto) 0.6 Neut # (Auto) 8.0 H Lymph # (Auto) 2.1 [place] # (Auto) 0.8 Eos # (Auto) 0.2 Baso # (Auto) 0.1 Sodium 134 Potassium 4.4 Chloride 102 Carbon Dioxide 26 Anion Gap 11 BUN 14 Creatinine 1.0 Est GFR ( Amer) > 60 Est GFR (Non-Af Amer) > 60 POC Glucose (mg/dL) 226 H Random Glucose 228 H Hemoglobin A1c Calcium 8.4 L Total Bilirubin 0.4 AST 24 ALT 19 Alkaline Phosphatase 81 Total Protein 6.3 Albumin 2.9 L Globulin 3.4 Albumin/Globulin Ratio 0.9 L Free T4 08/19/17 08/19/17 08/19/17 07:23 11:20 11:32 WBC RBC Hgb Hct MCV MCH MCHC RDW Plt Count MPV Neut % (Auto) Lymph % (Auto) [place] % (Auto) Eos % (Auto) Baso % (Auto) Neut # (Auto) Lymph # (Auto) [place] # (Auto) Eos # (Auto) Baso # (Auto) Sodium Potassium Chloride Carbon Dioxide Anion Gap BUN Creatinine Est GFR ( Amer) Est GFR (Non-Af Amer) POC Glucose (mg/dL) 216 H 284 H Random Glucose Hemoglobin A1c Calcium Total Bilirubin AST ALT Alkaline Phosphatase Total Protein Albumin Globulin Albumin/Globulin Ratio Free T4 1.10 08/19/17 08/19/17 11:32 16:37 WBC RBC Hgb Hct MCV MCH MCHC RDW Plt Count MPV Neut % (Auto) Lymph % (Auto) [place] % (Auto) Eos % (Auto) Baso % (Auto) Neut # (Auto) Lymph # (Auto) [place] # (Auto) Eos # (Auto) Baso # (Auto) Sodium Potassium Chloride Carbon Dioxide Anion Gap BUN Creatinine Est GFR ( Amer) Est GFR (Non-Af Amer) POC Glucose (mg/dL) 232 H Random Glucose Hemoglobin A1c 9.8 H Calcium Total Bilirubin AST ALT Alkaline Phosphatase Total Protein Albumin Globulin Albumin/Globulin Ratio Free T4 Attending/Attestation - Attestation I have personally seen and examined this patient.: Yes I have fully participated in the care of the patient.: Yes I have reviewed all pertinent clinical information: Yes Notes (Text): 08/19/17 16:50 I have seen and examined patient with GI fellow. Agree with above documentation with the following additions. In brief, this is a 41 year old female with history of depression, hypothyroidism, uncontrolled DM, chronic constipation who initially presented to hospital with complaint of cough and progressive fatigue. She is currently being treated for acute bronchitis. GI called for evaluation of worsening constipation and abdominal pain. She describes constipation symptoms for past 5 years with multiple failed outpatient laxative therapies. She also reports ongoing intermittent epigastric and right sided abdominal pain with irregular caliber bowel movements. She denies nausea, vomiting, fever/chills, weight loss, rectal bleeding. No prior endoscopic evaluation. DM, uncontrolled Depression Hypothyroidism Chronic constipation Acute bronchitis - Diet as tolerated - Continue with antibiotic therapy as per ID - Maintain bowel regimen to prevent constipation - Patient requires strict blood glucose control which will improve overall symptoms - Obtain TSH - Patient would benefit from elective outpatient colonoscopy given worsening constipation and 2nd degree family relatives with history of colon cancer. Will provide office contact information to patient. No further planned GI interventions, will sign off case. Please reconsult as necessary, thank you. Case discussed with Dr. Garcia.
[2017-08-19] MEDS ORDERED: Bisacodyl 5mg EC Tab PO ONE (08:38)
[2017-08-19] MEDS: POLYETHYLENE GLYCOL 3350 17 GM/Dose PACKET PO SCH ×2 (09:49→19:00)
[2017-08-19] MEDS: Pantoprazole 40 mg EC Tab PO SCH (09:49)
[2017-08-19] MEDS: Albuterol-Ipratrop 3 mg / 0.5 (3 ml) UD INH PRN (09:51)
--- NOTE | 2017-08-19 13:41 | CP.PCM.PN ---
Subjective - Date & Time of Evaluation Date of Evaluation: 08/19/17 Time of Evaluation: 13:41 - Subjective Subjective: CHIEF COMPLAINTS TODAY : COUGH /WHEEZING ROS. HEENT : N. Resp : No hemoptysis Cardio : No anginal CP, PND, orthopnea, palpitation GI : No abd.pain, n/v ,diarrhea or GI bleeding .CONSTIPATION IMPLEMENTATION COORDINATOR : No headache, vertigo, focal deficit. Musculoskel : No joint swelling , Derm : No rash Psych : Normal affect. Ext : No swelling ,calf pain PE. Pt. is alert awake in no distress. V.S As noted in the chart Head ,ear nose,throat and eyes : Normal. Neck : Supple with normal carotids. Lungs: RONCHI Heart : S1 & S2 normal with S4. No murmur. Abd : Soft non tender with normal bowel sounds. Neuro : Moves all ext. with no localized deficit. Ext : No edema with intact pulses.Non tender calves Derm : No rashes or decubitus ulcer. LABS/RADIOLOGY: CT SINUS : MUCOSAL DISEASE , CT CHEST : NOTHING ACUTE ASSESSMENT/PLAN : CONT IV AB NEBULISER GI EVAL Objective - Vital Signs/Intake and Output Vital Signs (last 24 hours): Temp Pulse Resp BP Pulse Ox 98.4 F 82 20 124/69 97 08/19/17 07:05 08/19/17 07:05 08/19/17 07:05 08/19/17 07:05 08/19/17 07:05 - Medications Medications: Current Medications Albuterol/Ipratropium (Duoneb 3 Mg/0.5 Mg (3 Ml) Ud) 3 ml INH RQ4 PRN PRN Reason: Wheezing Last Admin: 08/19/17 09:51 Dose: 3 ml Aspirin (Ecotrin) 81 mg PO DAILY [facility] Last Admin: 08/19/17 09:49 Dose: 81 mg Heparin Sodium (Porcine) (Heparin) 5,000 units SC Q12 [facility] Last Admin: 08/19/17 09:49 Dose: Not Given Piperacillin Sod/Tazobactam (Sod 3.375 gm/ Sodium Chloride) 100 mls @ 100 mls/ hr IVPB Q8H [facility] PRN Reason: Protocol Last Admin: 08/19/17 06:20 Dose: 100 mls/hr Vancomycin/Sodium Chloride (Vancomycin 1 Gm/Ns 200 Ml) 1 gm in 200 mls @ 133.333 mls/hr IVPB Q24H [facility] PRN Reason: Protocol Stop: 08/19/17 23:31 Last Admin: 08/18/17 23:25 Dose: 133.333 mls/hr Insulin Glargine (Lantus) 30 unit SC HS [facility] Last Admin: 08/18/17 21:42 Dose: 30 units Insulin Human Regular (Novolin R) 0 unit SC ACHS [facility] PRN Reason: Protocol Last Admin: 08/19/17 12:30 Dose: 4 unit Lactulose (Enulose) 20 gm PO HS [facility] Last Admin: 08/18/17 21:33 Dose: 20 gm Losartan Potassium (Cozaar) 50 mg PO DAILY [facility] Last Admin: 08/19/17 09:49 Dose: 50 mg Pantoprazole Sodium (Protonix Ec Tab) 40 mg PO DAILY [facility] Last Admin: 08/19/17 09:49 Dose: 40 mg Polyethylene Glycol (Miralax) 17 gm PO BID [facility] Last Admin: 08/19/17 09:49 Dose: 17 gm Sitagliptin Phosphate (Januvia) 100 mg PO DAILY [facility] Last Admin: 08/19/17 09:49 Dose: 100 mg - Labs Labs: 08/19/17 06:47 08/19/17 06:47 PT 10.3 SECONDS (9.7-12.2) 08/14/17 19:50 INR 0.9 08/14/17 19:50 APTT 25 SECONDS (21-34) 08/14/17 19:50
[2017-08-19 17:05] VITALS: O2SAT 99
--- NOTE | 2017-08-19 20:57 | CP.PCM.PN ---
Subjective - Date & Time of Evaluation Date of Evaluation: 08/19/17 Time of Evaluation: 20:57 - Subjective Subjective: CHIEF COMPLAINTS TODAY : COUGH /WHEEZING C/O CONSTIPATION . SEEN BY GI. JASON HEENT : N. Resp : No hemoptysis Cardio : No anginal CP, PND, orthopnea, palpitation GI : No abd.pain, n/v ,diarrhea or GI bleeding .CONSTIPATION CORRESPONDENCE REPRESENTATIVE : No headache, vertigo, focal deficit. Musculoskel : No joint swelling , Derm : No rash Psych : Normal affect. Ext : No swelling ,calf pain PE. Pt. is alert awake in no distress. V.S As noted in the chart Head ,ear nose,throat and eyes : Normal. Neck : Supple with normal carotids. Lungs: RONCHI Heart : S1 & S2 normal with S4. No murmur. Abd : Soft non tender with normal bowel sounds. Neuro : Moves all ext. with no localized deficit. Ext : No edema with intact pulses.Non tender calves Derm : No rashes or decubitus ulcer. LABS/RADIOLOGY: CT SINUS : MUCOSAL DISEASE , CT CHEST : NOTHING ACUTE ASSESSMENT/PLAN : CONT IV AB- SWITCH TO PO AUGMENTIN 875MG PO BID X 10DAYS. NEBULISER GI EVAL - AND RECOMENDATIONS NOTED. PT TO F/U GI OPD IF SYMPTOMS PERSIST . Objective - Vital Signs/Intake and Output Vital Signs (last 24 hours): Temp Pulse Resp BP Pulse Ox 98.8 F 110 H 20 124/83 99 08/19/17 16:00 08/19/17 16:00 08/19/17 16:00 08/19/17 16:00 08/19/17 16:00 Intake and Output: 08/19/17 08/20/17 18:59 06:59 Intake Total 580 Balance 580 - Medications Medications: Current Medications Albuterol/Ipratropium (Duoneb 3 Mg/0.5 Mg (3 Ml) Ud) 3 ml INH RQ4 PRN PRN Reason: Wheezing Last Admin: 08/19/17 09:51 Dose: 3 ml Aspirin (Ecotrin) 81 mg PO DAILY [facility] Last Admin: 08/19/17 09:49 Dose: 81 mg Heparin Sodium (Porcine) (Heparin) 5,000 units SC Q12 [facility] Last Admin: 08/19/17 09:49 Dose: Not Given Piperacillin Sod/Tazobactam (Sod 3.375 gm/ Sodium Chloride) 100 mls @ 100 mls/ hr IVPB Q8H [facility] PRN Reason: Protocol Last Admin: 08/19/17 14:42 Dose: 100 mls/hr Vancomycin/Sodium Chloride (Vancomycin 1 Gm/Ns 200 Ml) 1 gm in 200 mls @ 133.333 mls/hr IVPB Q24H [facility] PRN Reason: Protocol Stop: 08/19/17 23:31 Last Admin: 08/18/17 23:25 Dose: 133.333 mls/hr Insulin Glargine (Lantus) 30 unit SC HS [facility] Last Admin: 08/18/17 21:42 Dose: 30 units Insulin Human Regular (Novolin R) 0 unit SC ACHS [facility] PRN Reason: Protocol Last Admin: 08/19/17 16:54 Dose: 3 unit Lactulose (Enulose) 20 gm PO HS [facility] Last Admin: 08/18/17 21:33 Dose: 20 gm Losartan Potassium (Cozaar) 50 mg PO DAILY [facility] Last Admin: 08/19/17 09:49 Dose: 50 mg Pantoprazole Sodium (Protonix Ec Tab) 40 mg PO DAILY [facility] Last Admin: 08/19/17 09:49 Dose: 40 mg Polyethylene Glycol (Miralax) 17 gm PO BID [facility] Last Admin: 08/19/17 19:00 Dose: 17 gm Sitagliptin Phosphate (Januvia) 100 mg PO DAILY [facility] Last Admin: 08/19/17 09:49 Dose: 100 mg - Labs Labs: 08/19/17 06:47 08/19/17 06:47 PT 10.3 SECONDS (9.7-12.2) 08/14/17 19:50 INR 0.9 08/14/17 19:50 APTT 25 SECONDS (21-34) 08/14/17 19:50 Assessment and Plan (1) Abdominal pain Status: Acute (2) Bronchitis Status: Acute (3) Hypertension Status: Chronic (4) Uncontrolled diabetes mellitus Status: Chronic (5) Diabetic neuropathy Status: Chronic
[2017-08-19] MEDS: (Lantus) Insulin Glargine, Recombinant SC SCH (21:44)
[2017-08-19] MEDS: Vancomycin 1 gm/NS 200 ml 1 GM/200 ML BAG IVPB SCH (23:45)
[2017-08-19 23:46] VITALS: BP 127/82; PULSE 92; TEMP 98.5
[2017-08-20] MEDS: Piperacillin/Tazobact 3.375 GM in Sodium Chloride 100 ML IVPB SCH (06:47)
[2017-08-20 07:30] LABS: BASO # 0.1 K/uL (0.0-0.2); BASO % 0.4 % (0.0-2.0); EOS # 0.3 K/uL (0.0-0.7); EOS % 1.9 % (0.0-4.0); HEMOGLOBIN 9.2 g/dL (11.0-16.0); LYMPH # 2.7 K/uL (1.0-4.3); LYMPH % 20.8 % (20.0-40.0); MEAN CELL VOLUME 93.2 fL (81.0-99.0); MEAN CORPUSCULAR HEMOGLOBIN 32.7 pg (27.0-31.0); MEAN CORPUSCULAR HGB CONC 35.1 g/dL (33.0-37.0); MEAN PLATELET VOLUME 7.8 fL (7.2-11.7); MONO % 7.6 % (0.0-10.0); NEUT # 9.1 K/uL (1.8-7.0); NEUT % 69.3 % (50.0-75.0); RBC 2.81 Mil/uL (3.80-5.20); RED CELL DISTRIBUTION WIDTH 12.6 % (11.5-14.5); WHITE BLOOD COUNT 13.2 K/uL (4.8-10.8)
[2017-08-20 07:44] LABS: ALB/GLOB RATIO 0.9 (1.0-2.1); ALBUMIN 2.9 g/dL (3.5-5.0); ALT/SGPT 12 U/L (9-52); AST/SGOT 23 U/L (14-36); BLOOD UREA NITROGEN 13 mg/dL (7-17); CALCIUM 8.3 mg/dl (8.6-10.4); GFR AFRICAN-AMERICAN > 60; GFR NON-AFRICAN AMERICAN > 60
[2017-08-20] MEDS: (Novolin R) Insulin Human Regular 100 units/ml vial SC SCH ×2 (08:00→12:12)
[2017-08-20] MEDS: Pantoprazole 40 mg EC Tab PO SCH (10:45)
[2017-08-20] MEDS: POLYETHYLENE GLYCOL 3350 17 GM/Dose PACKET PO SCH (10:50)
[2017-08-20] MEDS ORDERED: Albuterol-Ipratrop 3 mg / 0.5 (3 ml) UD INH SCH (11:00)
--- NOTE | 2017-08-20 13:43 | CP.PCM.DIS ---
Provider - Provider Date of Admission: 08/14/17 22:24 Attending physician: Ralf Garcia MD Time Spent in preparation of Discharge (in minutes): 35 Diagnosis - Discharge Diagnosis (1) Acute bronchitis Status: Acute (2) Acute sinusitis Status: Acute (3) T2DM (type 2 diabetes mellitus) Status: Acute (4) Colitis Status: Acute Hospital Course - Lab Results Lab Results: Micro Results 08/14/17 19:30 Blood Blood Culture - Final NO GROWTH AFTER 5 DAYS 08/14/17 19:30 Blood Gram Stain - Final TEST NOT PERFORMED 08/14/17 19:10 Blood Blood Culture - Final NO GROWTH AFTER 5 DAYS 08/14/17 19:10 Blood Gram Stain - Final TEST NOT PERFORMED 08/17/17 09:15 Naris MRSA Culture (Admit) - Final MRSA NOT DETECTED 08/15/17 Unknown Stool Stool Culture - Final NO SALMONELLA, SHIGELLA OR CAMPYLOBACTER ISOLATED. 08/15/17 20:23 Naris MRSA Culture (Admit) - Final MRSA NOT DETECTED 08/14/17 Unknown Urine Urine Culture - Final No Growth (<1,000 CFU/ML) Most Recent Lab Values WBC 13.2 K/uL (4.8-10.8) H 08/20/17 06:59 RBC 2.81 Mil/uL (3.80-5.20) L 08/20/17 06:59 Hgb 9.2 g/dL (11.0-16.0) L 08/20/17 06:59 Hct 26.2 % (34.0-47.0) L 08/20/17 06:59 MCV 93.2 fL (81.0-99.0) 08/20/17 06:59 MCH 32.7 pg (27.0-31.0) H 08/20/17 06:59 MCHC 35.1 g/dL (33.0-37.0) 08/20/17 06:59 RDW 12.6 % (11.5-14.5) 08/20/17 06:59 Plt Count 324 K/uL (130-400) 08/20/17 06:59 MPV 7.8 fL (7.2-11.7) 08/20/17 06:59 Neut % (Auto) 69.3 % (50.0-75.0) 08/20/17 06:59 Lymph % (Auto) 20.8 % (20.0-40.0) 08/20/17 06:59 [place] % (Auto) 7.6 % (0.0-10.0) 08/20/17 06:59 Eos % (Auto) 1.9 % (0.0-4.0) 08/20/17 06:59 Baso % (Auto) 0.4 % (0.0-2.0) 08/20/17 06:59 Neut # (Auto) 9.1 K/uL (1.8-7.0) H 08/20/17 06:59 Lymph # (Auto) 2.7 K/uL (1.0-4.3) 08/20/17 06:59 [place] # (Auto) 1.0 K/uL (0.0-0.8) H 08/20/17 06:59 Eos # (Auto) 0.3 K/uL (0.0-0.7) 08/20/17 06:59 Baso # (Auto) 0.1 K/uL (0.0-0.2) 08/20/17 06:59 PT 10.3 SECONDS (9.7-12.2) 08/14/17 19:50 INR 0.9 08/14/17 19:50 APTT 25 SECONDS (21-34) 08/14/17 19:50 pO2 31 mm/Hg (30-55) 08/14/17 23:50 VBG pH 7.35 (7.32-7.43) 08/14/17 23:50 VBG pCO2 41 mmHg (40-60) 08/14/17 23:50 VBG HCO3 21.5 mmol/L 08/14/17 23:50 VBG Total CO2 23.9 mmol/L (22-28) 08/14/17 23:50 VBG O2 Sat (Calc) 64.8 % (40-65) 08/14/17 23:50 VBG Base Excess -2.9 mmol/L (0.0-2.0) L 08/14/17 23:50 VBG Potassium 3.8 mmol/L (3.6-5.2) 08/14/17 23:50 Sodium 138.0 mmol/l (132-148) 08/14/17 23:50 Chloride 108.0 mmol/L (98-107) H 08/14/17 23:50 Glucose 305 mg/dl (65-105) H 08/14/17 23:50 Lactate 2.5 mmol/L (0.7-2.1) H 08/14/17 23:50 Crit Value Called To Lori ayala rn 08/14/17 23:18 Crit Value Called By Eder 08/14/17 23:18 Crit Value Read Back Y 08/14/17 23:18 Blood Gas Notified Time 232308/14/17 23:18 Sodium 136 mmol/L (132-148) 08/20/17 06:59 Potassium 4.2 mmol/L (3.6-5.2) 08/20/17 06:59 Chloride 105 mmol/L (98-107) 08/20/17 06:59 Carbon Dioxide 21 mmol/L (22-30) L 08/20/17 06:59 Anion Gap 15 (10-20) 08/20/17 06:59 BUN 13 mg/dL (7-17) 08/20/17 06:59 Creatinine 1.0 mg/dL (0.7-1.2) 08/20/17 06:59 Est GFR ( Amer) > 60 08/20/17 06:59 Est GFR (Non-Af Amer) > 60 08/20/17 06:59 POC Glucose (mg/dL) 279 mg/dL (65-110) H 08/20/17 11:26 Random Glucose 187 mg/dL (65-105) H 08/20/17 06:59 Hemoglobin A1c 9.8 % (4.2-6.5) H 08/19/17 11:32 Calcium 8.3 mg/dl (8.6-10.4) L 08/20/17 06:59 Magnesium 1.5 mg/dL (1.6-2.3) L 08/14/17 19:50 Total Bilirubin 0.3 mg/dL (0.2-1.3) 08/20/17 06:59 AST 23 U/L (14-36) 08/20/17 06:59 ALT 12 U/L (9-52) 08/20/17 06:59 Alkaline Phosphatase 85 U/L (38-126) 08/20/17 06:59 C-Reactive Protein 19.10 mg/L (0.0-9.9) H 08/15/17 06:40 Total Protein 6.1 g/dL (6.3-8.3) L 08/20/17 06:59 Albumin 2.9 g/dL (3.5-5.0) L 08/20/17 06:59 Globulin 3.2 gm/dL (2.2-3.9) 08/20/17 06:59 Albumin/Globulin Ratio 0.9 (1.0-2.1) L 08/20/17 06:59 Lipase 91 U/L (23-300) 08/14/17 19:50 Free T4 1.10 ng/dL (0.78-2.19) 08/19/17 11:32 TSH 3rd Generation 3.04 mIU/L (0.46-4.68) 08/20/17 06:59 Venous Blood Potassium 3.8 mmol/L (3.6-5.2) 08/14/17 23:50 Urine Color Digna (YELLOW) 08/14/17 19:50 Urine Clarity Hazy (Clear) 08/14/17 19:50 Urine pH 6.0 (5.0-8.0) 08/14/17 19:50 Ur Specific [place] 1.027 (1.003-1.030) 08/14/17 19:50 Urine Protein 3+ mg/dL (NEGATIVE) H 08/14/17 19:50 Urine Glucose (UA) 1+ mg/dL (Normal) 08/14/17 19:50 Urine Ketones Trace mg/dL (NEGATIVE) 08/14/17 19:50 Urine Blood Negative (NEGATIVE) 08/14/17 19:50 Urine Nitrate Negative (NEGATIVE) 08/14/17 19:50 Urine Bilirubin Negative (NEGATIVE) 08/14/17 19:50 Urine Urobilinogen 2.0 mg/dL (0.2-1.0) H 08/14/17 19:50 Ur Leukocyte Esterase Neg Lisa/uL (Negative) 08/14/17 19:50 Urine WBC (Auto) 3 /hpf (0-5) 08/14/17 19:50 Urine RBC (Auto) 4 /hpf (0-3) H 08/14/17 19:50 Ur Squamous Epith Cells 5 /hpf (0-5) 08/14/17 19:50 Hyaline Casts 3-5 /lpf (0-2) H 08/14/17 19:50 Urine HCG, Qual Negative (NEGATIVE) 08/14/17 19:50 Stool Leukocytes, Qual Negative (NEGATIVE) 08/14/17 Unknown - Hospital Course Hospital Course: HPI FOR LAST FEW DAYS PT IS HAVING COUGH, SOB/WHEEZING AND ABD PAIN. PRELIMINARY OUT PT. W/U SHOWED WBC 13.5 . PT HAS RECEIVED PO AB . PT HAS NO MEASURABLE IMPROVEMENT AND WAS REFERRED TO ER . ER SHOWED WBC OF 17.5 AND MILD INCREASE IN LACTATE PAST HIST. T2DM/HTN/DM FOOT INFECTION /COPD ID.GI CONSULTED CT CHEST NEG , CT SINUS , SINUSITIS PT IMPROVED ON IV AB AND NEB . CONSSTIPATION WAS IMOROVED WITH MIRALAX . COLONOSCOPY OUT PT PT STABLE FOR D/C ON PO AB ,AUGMENTIN Discharge Exam - Head Exam Head Exam: ATRAUMATIC, NORMOCEPHALIC Discharge Plan - Discharge Medications Prescriptions: Amoxicillin/Clavulanate [Augmentin 875 MG-125 MG] 1 tab PO Q12H #20 tab Lactobacillus Acidophilus [Bacid Acidophilus] 1 cap PO DAILY #14 cap Polyethylene Glycol 3350 [Miralax] 17 gm PO BID 30 Days ml - Follow Up Plan Condition: FAIR Disposition: HOME/ ROUTINE Instructions: Polyethylene Glycol 3350, Fatigue (DC), Amoxicillin and Clavulanate, Lactobacillus, Constipation (DC), Acute Abdominal Pain (DC), Leukocytosis (DC)
== END 2017-08-20 14:13 | disposition home or self-care (01) | DRG 192 ==
LOC: C.ER 18:53 → EEVIPCON 22:24 → C.9E 22:24 → C.3T 08-15 00:06
PROVIDERS: ADMIT Internal Medicine Cardiovascular Disease; ATTEND Internal Medicine Cardiovascular Disease
DX: J44.0 Chronic obstructive pulmonary disease with (acute) lower respiratory infection (principal); J20.9 Acute bronchitis, unspecified; D72.829 Elevated white blood cell count, unspecified; K59.09 Other constipation; E11.65 Type 2 diabetes mellitus with hyperglycemia; E11.42 Type 2 diabetes mellitus with diabetic polyneuropathy; K52.9 Noninfective gastroenteritis and colitis, unspecified; I10 Essential (primary) hypertension; K21.9 Gastro-esophageal reflux disease without esophagitis; D64.9 Anemia, unspecified; J32.9 Chronic sinusitis, unspecified; R09.82 Postnasal drip; E03.9 Hypothyroidism, unspecified; F17.210 Nicotine dependence, cigarettes, uncomplicated; E78.5 Hyperlipidemia, unspecified; M19.90 Unspecified osteoarthritis, unspecified site; H40.9 Unspecified glaucoma; E78.00 Pure hypercholesterolemia, unspecified; N63.20 Unspecified lump in the left breast, unspecified quadrant; F32.9 Major depressive disorder, single episode, unspecified; Z79.4 Long term (current) use of insulin

== ENCOUNTER 2017-09-09 16:22 | Emergency (ER) | payer OTHER, MEDICARE ==
[2017-09-09 16:22] VITALS: BMI 25.5
[2017-09-09 16:45] VITALS: BP 144/95; PULSE 88; RESP 18; TEMP 98.5; O2SAT 100
--- NOTE | 2017-09-09 18:32 | RAD ---
PROCEDURE: Right Hand Radiographs. HISTORY: Pain pain and swelling. No history of trauma COMPARISON: None. FINDINGS: BONES: Normal. No fracture. JOINTS: Normal. No osteoarthritic changes. SOFT TISSUES: Normal. OTHER FINDINGS: None. IMPRESSION: Normal right hand radiographs.
--- NOTE | 2017-09-09 18:35 | C.PDOC ---
History Of Present Illness Pt c/o right hand pain. Pt states she overworked it, but states she is unsure if she hit it against something. Time Seen by Provider: 09/09/17 17:59 Chief Complaint (Nursing): Finger,Hand,&Wrist History Per: Patient Onset/Duration Of Symptoms: Days (4) Current Symptoms Are (Timing): Still Present Quality: "Pain" Severity: Moderate Exacerbating Factor(s): Strenuous Use Of Affected Area Additional History Per: Prior Records Past Medical History Reviewed: Historical Data, Nursing Documentation, Vital Signs Vital Signs: Last Vital Signs Temp 98.5 F 09/09/17 16:40 Pulse 88 09/09/17 16:40 Resp 18 09/09/17 16:40 BP 144/95 H 09/09/17 16:40 Pulse Ox 100 09/09/17 16:40 - Medical History PMH: Arthritis, Asthma, Depression, Diabetes, Gastritis, HTN, Hypercholesterolemia (DENIES 08/14/17), Hypothyroidism (DENIES 08/14/17), Migraine - [facility] Procedures EXCISION OF R FOOT SUBCU/FASCIA, OPEN APPROACH (11/01/15) INSERTION OF INFUSION DEV INTO SUP VENA CAVA, PERC APPROACH (11/01/15) RESECTION OF RIGHT TOE PHALANX, OPEN APPROACH (11/01/15) Family History: States: Unknown Family Hx - Social History Hx Tobacco Use: Yes Hx Alcohol Use: No Hx Substance Use: No - Immunization History Hx Tetanus Toxoid Vaccination: No Hx Influenza Vaccination: No Hx Pneumococcal Vaccination: No Review Of Systems Except As Marked, All Systems Reviewed And Found Negative. Constitutional: Negative for: Fever, Weakness Cardiovascular: Negative for: Chest Pain Respiratory: Negative for: Shortness of Breath Gastrointestinal: Negative for: Vomiting, Abdominal Pain Musculoskeletal: Positive for: Hand Pain (Right). Negative for: Neck Pain Skin: Positive for: Bruising Neurological: Negative for: Weakness, Numbness Physical Exam - Physical Exam Appears: Non-toxic, No Acute Distress Skin: Normal Color, Warm, Dry Head: Atraumatic, Normacephalic Eye(s): bilateral: PERRL, EOMI Neck: Normal ROM, Supple Extremity: Normal ROM, Tenderness (nonpecific dorsum of right hand/fingers), No Deformity Pulses: Right Radial: Normal Neurological/Psych: Oriented x3, Normal Motor, Normal Sensation ED Course And Treatment O2 Sat by Pulse Oximetry: 100 Pulse Ox Interpretation: Normal - Other Rad Right hand x-rays X-Ray: Viewed By Me, Read By Radiologist Interpretation: Fracture of distal phalanx of ring finger Progress Note: Right ring finger was placed in finger splint by me. Reassessment Condition: Improved Disposition Counseled Patient/Family Regarding: Studies Performed, Diagnosis, Need For Followup, Rx Given - Disposition Referrals: Rolando Lopez MD [Staff Provider] - Disposition: HOME/ ROUTINE Disposition Time: 18:35 Condition: STABLE Additional Instructions: Keep your finger in the splint provided until fully healed. Follow up with a Hand specialist. Return to the ER if you develop worsening of symptoms or if you have any other concerns. Prescriptions: Naproxen [Naprosyn] 1 tab PO BID PRN #20 tab PRN Reason: Pain Instructions: Finger Fracture (DC) - Clinical Impression Clinical Impression: Fracture of distal phalanx of right ring finger, Hand pain, right
== END 2017-09-09 18:56 | disposition home or self-care (01) ==
LOC: C.ER 16:22
DX: S62.634A Displaced fracture of distal phalanx of right ring finger, initial encounter for closed fracture (principal); X50.9XXA Other and unspecified overexertion or strenuous movements or postures, initial encounter; E11.9 Type 2 diabetes mellitus without complications; I10 Essential (primary) hypertension; E78.00 Pure hypercholesterolemia, unspecified; Z72.0 Tobacco use
CPT/HCPCS: 73130; 96372; 99284; J1885